=== PATIENT | male | born 1965 | race Caucasian/White ===

== ENCOUNTER 2018-04-12 16:54 | Observation (INO) | payer SELFPAY ==
--- NOTE | 2018-04-12 18:37 | EDPHYS ---
Physician Documentation [facility] Name: Ramu Bhat Age: 52 yrs Sex: Male : 1965 Arrival Date: 04/12/2018 Time: 16:56 Bed 24 Private MD: None, None ED Physician Cipriano Pena HPI: 04/12 18:29 This 52 yrs old Male presents to ER via Ambulatory with complaints of Chest jose daniel Tightness, Dizziness, Blurred Vision, Shortness Of Breath. 18:29 The patient or guardian reports chest pain that is located primarily in the substernal jose daniel area, anterior chest wall, bilaterally. Onset: just prior to arrival, today. The pain does not radiate. Associated signs and symptoms: Pertinent positives: nausea, shortness of breath. The chest pain is described as a heaviness, a pressure. Modifying factors: The symptoms are alleviated by nothing. the symptoms are aggravated by nothing. Severity of pain: At its worst the pain was mild moderate in the emergency department the pain is unchanged. The patient has experienced similar episodes in the past, several times. Historical: - Allergies: 17:18 No Known Allergies; aa5 - PMHx: 17:18 Hypertension; Kidney stones; STEMI; aa5 - PSHx: 17:18 Heart stents; aa5 - Immunization history:: Adult Immunizations unknown. - Social history:: Smoking status: Patient/guardian denies using tobacco. - Ebola Screening: : No symptoms or risks identified at this time. - Family history:: not pertinent. ROS: 18:29 Constitutional: Negative for fever, chills, and weight loss, Eyes: Negative for injury, jose daniel pain, redness, and discharge, ENT: Negative for injury, pain, and discharge, Neck: Negative for injury, pain, and swelling, Respiratory: Negative for shortness of breath, cough, wheezing, and pleuritic chest pain, Abdomen/GI: Negative for abdominal pain, nausea, vomiting, diarrhea, and constipation, Back: Negative for injury and pain, : Negative for injury, bleeding, discharge, and swelling, MS/Extremity: Negative for injury and deformity, Skin: Negative for injury, rash, and discoloration, Neuro: Negative for headache, weakness, numbness, tingling, and seizure. 18:29 Cardiovascular: Positive for chest pain. Exam: 18:29 Constitutional: This is a well developed, well nourished patient who is awake, alert, jose daniel and in no acute distress. Head/Face: Normocephalic, atraumatic. Eyes: Pupils equal round and reactive to light, extra-ocular motions intact. Lids and lashes normal. Conjunctiva and sclera are non-icteric and not injected. Cornea within normal limits. Periorbital areas with no swelling, redness, or edema. ENT: Nares patent. No nasal discharge, no septal abnormalities noted. Tympanic membranes are normal and external auditory canals are clear. Oropharynx with no redness, swelling, or masses, exudates, or evidence of obstruction, uvula midline. Mucous membranes moist. Neck: Trachea midline, no thyromegaly or masses palpated, and no cervical lymphadenopathy. Supple, full range of motion without nuchal rigidity, or vertebral point tenderness. No Meningismus. Chest/axilla: Normal chest wall appearance and motion. Nontender with no deformity. No lesions are appreciated. Cardiovascular: Regular rate and rhythm with a normal S1 and S2. No gallops, murmurs, or rubs. Normal PMI, no JVD. No pulse deficits. Respiratory: Lungs have equal breath sounds bilaterally, clear to auscultation and percussion. No rales, rhonchi or wheezes noted. No increased work of breathing, no retractions or nasal flaring. Abdomen/GI: Soft, non-tender, with normal bowel sounds. No distension or tympany. No guarding or rebound. No evidence of tenderness throughout. Back: No spinal tenderness. No costovertebral tenderness. Full range of motion. Male : Normal genitalia with no discharge or lesions. Skin: Warm, dry with normal turgor. Normal color with no rashes, no lesions, and no evidence of cellulitis. MS/ Extremity: Pulses equal, no cyanosis. Neurovascular intact. Full, normal range of motion. Neuro: Awake and alert, GCS 15, oriented to person, place, time, and situation. Cranial nerves II-XII grossly intact. Motor strength 5/5 in all extremities. Sensory grossly intact. Cerebellar exam normal. Normal gait. Psych: Awake, alert, with orientation to person, place and time. Behavior, mood, and affect are within normal limits. Vital Signs: 17:18 BP 150 / 79; Pulse 78; Resp 18 S; Temp 98.7(TE); Pulse Ox 96% on R/A; Weight 110.68 kg aa5 (R); Height 5 ft. 10 in. (177.80 cm) (R); Pain 6/10; 20:00 BP 162 / 91; Pulse 64; Resp 17; Pulse Ox 100% on R/A; rk2 20:30 BP 153 / 80; Pulse 61; Resp 17; Pulse Ox 100% on R/A; rk2 21:30 BP 136 / 76; Pulse 67; Resp 18; Pulse Ox 100% on R/A; rk2 17:18 Body Mass Index 35.01 (110.68 kg, 177.80 cm) aa5 MDM: 18:15 Patient medically screened. [facility] 18:32 Data reviewed: vital signs, nurses notes, lab test result(s), EKG, radiologic studies, jose daniel plain films. 04/12 18:25 Order name: Basic Metabolic Panel; Complete Time: 19:31 [facility] 04/12 18:25 Order name: BNP; Complete Time: 19:31 [facility] 04/12 18:25 Order name: CBC with Diff; Complete Time: 19:31 [facility] 04/12 18:25 Order name: Ckmb; Complete Time: 19:31 [facility] 04/12 18:25 Order name: CPK; Complete Time: 19:31 [facility] 04/12 18:25 Order name: LFT's; Complete Time: 19:31 [facility] 04/12 18:25 Order name: Magnesium; Complete Time: 19:31 [facility] 04/12 18:25 Order name: PT-INR [facility] 04/12 18:25 Order name: Ptt, Activated [facility] 04/12 18:25 Order name: Troponin (emerg Dept Use Only); Complete Time: 19:31 [facility] 04/12 18:25 Order name: XRAY Chest (1 view) [facility] 04/12 18:29 Order name: Lipase [facility] 04/12 19:22 Order name: RAD; Complete Time: 19:31 [facility] 04/12 20:21 Order name: Urine Dipstick--Ancillary (enter results) [facility] 04/12 18:25 Order name: EKG; Complete Time: 18:26 [facility] 04/12 18:25 Order name: Cardiac monitoring; Complete Time: 18:25 [facility] 04/12 18:25 Order name: EKG - Nurse/Tech; Complete Time: 18:25 2 04/12 18:25 Order name: IV Saline Lock; Complete Time: 18:25 2 04/12 18:25 Order name: Labs collected and sent; Complete Time: 19:17 04/12 18:25 Order name: O2 Per Protocol; Complete Time: 18:25 2 04/12 18:25 Order name: O2 Sat Monitoring; Complete Time: 18:26 04/12 18:25 Order name: Urine Dipstick-Ancillary (obtain specimen); Complete Time: 20:11 2 04/12 18:43 Order name: CONS Physician Consult EDMS Administered Medications: 18:33 Not Given (Pt. has taken multiple baby asa today): Aspirin 162 mg PO once rk2 18:45 Drug: Pepcid 20 mg Route: IVP; Site: right antecubital; rk2 20:44 Follow up: Response: No adverse reaction rk2 18:46 Drug: PlaVIX 75 mg Route: PO; rk2 20:45 Follow up: Response: No adverse reaction rk2 18:46 Drug: Lovenox 100 mg Route: Sub-Q; Site: right lower abdomen; rk2 20:44 Follow up: Response: No adverse reaction rk2 18:46 Drug: NS 0.9% 1000 ml Route: IV; Rate: 125 ml/hr; Site: right antecubital; rk2 21:57 Follow up: Response: No adverse reaction; IV Status: Completed infusion; Infusion rk2 continued 18:59 CANCELLED (cancelled by Dr. Pena... not is stock): Zocor 40 mg PO once rk2 Disposition: 04/12/18 18:36 Hospitalization ordered by Keshav Roche for Observation. Preliminary diagnosis are Chest pain, unspecified, Essential (primary) hypertension, Dyspnea. - Bed requested for Telemetry/MedSurg (observation). - Status is Observation. rk2 - Condition is Fair. - Problem is new. - Symptoms have improved. UTI on Admission? No Signatures: Dispatcher [employer] EDMS Cipriano Pena MD MD cha Ballard, Brenda, RN RN bb Evelyne Schwartz RN RN aa5 Quyen Elmore RN RN rk2 Corrections: (The following items were deleted from the chart) 18:59 18:36 Zocor 40 mg PO once ordered. jose daniel rk2 20:30 18:36 Hospitalization Ordered by Keshav Roche MD for Observation. Preliminary bb diagnosis is Chest pain, unspecified; Essential (primary) hypertension; Dyspnea. Bed requested for Telemetry/MedSurg (observation). Status is Observation. Condition is Fair. Problem is new. Symptoms have improved. UTI on Admission? No. jose daniel 22:29 20:30 04/12/2018 18:36 Hospitalization Ordered by Keshav Roche MD for Observation. rk2 Preliminary diagnosis is Chest pain, unspecified; Essential (primary) hypertension; Dyspnea. Bed requested for Telemetry/MedSurg (observation). Status is Observation. Condition is Fair. Problem is new. Symptoms have improved. UTI on Admission? No. bb
--- NOTE | 2018-04-12 18:37 | ER ---
Nurse's Notes [facility] Name: Ramu Bhat Age: 52 yrs Sex: Male : 1965 Arrival Date: 04/12/2018 Time: 16:56 Bed 24 Private MD: None, None Diagnosis: Chest pain, unspecified;Essential (primary) hypertension;Dyspnea Presentation: 04/12 17:16 Presenting complaint: Patient states: mid-sternal chest pressure, SOB, dizziness, and aa5 blurry vision that began Thursday. Transition of care: patient was not received from another setting of care. Onset of symptoms was April 09, 2018. Risk Assessment: Do you want to hurt yourself or someone else? Patient reports no desire to harm self or others. Initial Sepsis Screen: Does the patient meet any 2 criteria? No. Patient's initial sepsis screen is negative. Does the patient have a suspected source of infection? No. Patient's initial sepsis screen is negative. Care prior to arrival: None. 17:16 Method Of Arrival: Ambulatory aa5 17:16 Acuity: WILLIAM 3 aa5 Triage Assessment: 18:20 General: Appears in no apparent distress. obese, well developed, well nourished, rk2 Behavior is calm, cooperative. Pain: Complains of pain in chest. Neuro: Level of Consciousness is alert, obeys commands, Oriented to person, place, time, situation. Cardiovascular: Rhythm is sinus rhythm. Respiratory: Airway is patent Respiratory effort is even, unlabored, Respiratory pattern is regular, symmetrical. Derm: Skin is. Historical: - Allergies: 17:18 No Known Allergies; aa5 - PMHx: 17:18 Hypertension; Kidney stones; STEMI; aa5 - PSHx: 17:18 Heart stents; aa5 - Immunization history:: Adult Immunizations unknown. - Social history:: Smoking status: Patient/guardian denies using tobacco. - Ebola Screening: : No symptoms or risks identified at this time. - Family history:: not pertinent. Screenin:20 Abuse screen: Denies threats or abuse. rk2 18:20 Nutritional screening: No deficits noted. Tuberculosis screening: No symptoms or risk rk2 factors identified. Fall Risk None identified. Assessment: 20:00 Pain: Pain does not radiate. Pain began 2-3 days ago. rk2 Vital Signs: 17:18 BP 150 / 79; Pulse 78; Resp 18 S; Temp 98.7(TE); Pulse Ox 96% on R/A; Weight 110.68 kg aa5 (R); Height 5 ft. 10 in. (177.80 cm) (R); Pain 6/10; 20:00 BP 162 / 91; Pulse 64; Resp 17; Pulse Ox 100% on R/A; rk2 20:30 BP 153 / 80; Pulse 61; Resp 17; Pulse Ox 100% on R/A; rk2 21:30 BP 136 / 76; Pulse 67; Resp 18; Pulse Ox 100% on R/A; rk2 17:18 Body Mass Index 35.01 (110.68 kg, 177.80 cm) aa5 ED Course: 16:56 Patient arrived in ED. mr 16:56 None, None is Private Physician. mr 17:17 Triage completed. aa5 17:17 Arm band placed on. aa5 17:20 EKG completed in triage. Results shown to MD. [facility] 18:15 Cipriano Pena MD is Attending Physician. [facility] 18:16 Quyen Elmore RN is Primary Nurse. rk2 18:20 Patient has correct armband on for positive identification. Fall risk band placed. Bed rk2 in low position. Call light in reach. Side rails up X2. architectural examiner on. Pulse ox on. 18:34 Keshav Roche MD is Hospitalizing Provider. [facility] 19:01 X-ray completed. Portable x-ray completed in exam room. Patient tolerated procedure bb2 well. 19:18 XRAY Chest (1 view) Sent. rk2 21:55 No provider procedures requiring assistance completed. Patient admitted, IV remains in rk2 place. Patient maintains SpO2 saturation greater than 95% on room air. Administered Medications: 18:33 Not Given (Pt. has taken multiple baby asa today): Aspirin 162 mg PO once rk2 18:45 Drug: Pepcid 20 mg Route: IVP; Site: right antecubital; rk2 20:44 Follow up: Response: No adverse reaction rk2 18:46 Drug: PlaVIX 75 mg Route: PO; rk2 20:45 Follow up: Response: No adverse reaction rk2 18:46 Drug: Lovenox 100 mg Route: Sub-Q; Site: right lower abdomen; rk2 20:44 Follow up: Response: No adverse reaction rk2 18:46 Drug: NS 0.9% 1000 ml Route: IV; Rate: 125 ml/hr; Site: right antecubital; rk2 21:57 Follow up: Response: No adverse reaction; IV Status: Completed infusion; Infusion rk2 continued 18:59 CANCELLED (cancelled by Dr. Pena... not is stock): Zocor 40 mg PO once rk2 Outcome: 18:36 Decision to Hospitalize by Provider. jose daniel 21:55 Admitted to Tele rk2 21:55 Condition: improved 21:55 Instructed on the need for admit. 22:29 Patient left the ED. rk2 Signatures: Cipriano Pena MD MD cha Rivera, Maria mr Calderon, Audri, RN RN aa5 Ashia Long Quyen Andrade RN RN rk2
[2018-04-12] MEDS ORDERED: ENOXAPARIN 100 MG/ML SYR SQ ONE (18:39)
[2018-04-12] MEDS ORDERED: FAMOTIDINE 20 MG/2 ML VIAL IV ONE (18:39)
[2018-04-12] MEDS ORDERED: CLOPIDOGREL 75 MG TABLET ONE (18:39)
[2018-04-12] MEDS ORDERED: NA CHLORIDE 0.9% 1,000 ML ONE (18:40)
[2018-04-12 18:51] LABS: Absolute Lymphocytes (CBC) 2.4 K/uL (0.7-4.9); Absolute Monocytes 0.3 K/uL (0.1-1.3); Absolute Neutrophil 3.9 K/uL (1.8-8.0); Basophils % 0.8 % (0-1.3); Eosinophils % 4.8 % (0-4.4); Hematocrit 40.2 % (39.6-49.0); Lymphocytes % 34.4 % (15.3-44.8); MCH 32.9 pg (27.0-35.0); MPV 9.2 fL (7.6-11.3); Monocytes % 4.4 % (3.3-12.3); RBC Red Blood Cell Count 4.38 M/uL (4.33-5.43)
[2018-04-12 19:04] LABS: Potassium 3.6 mEq/L (3.6-5.0)
[2018-04-12 19:11] LABS: Albumin 4.1 g/dL (3.2-5.5); Bilirubin Direct 0.1 mg/dL (0-0.2); Bilirubin Total 0.7 mg/dL (0.3-1.2)
[2018-04-12 19:13] LABS: CKMB Creatine Kinase MB 1.4 ng/ml (0.3-4.0)
[2018-04-12] MEDS ORDERED: ACETAMINOPHEN 500 MG TAB PO PRN (19:20)
--- NOTE | 2018-04-12 19:22 | RAD REPORT ---
EXAM DESCRIPTION: RAD - Chest Single View - 04/12/2018 7:04 pm CLINICAL HISTORY: Chest pain. COMPARISON: 07/26/2017 FINDINGS: Portable technique limits examination quality. The lungs are grossly clear. The heart is normal in size. No displaced fractures. IMPRESSION: No acute intrathoracic process suspected.
[2018-04-12 19:26] LABS: Protime INR 1.03
[2018-04-12] MEDS ORDERED: ATORVASTATIN 40 MG TAB PO SCH (21:00)
[2018-04-12] MEDS: METOPROLOL TAR 50 MG TAB PO SCH (22:51)
[2018-04-12 22:58] LABS: Urine Blood NEGATIVE (NEG); Urine Glucose NEGATIVE (NEG); Urine Protein NEGATIVE (NEG); Urine Specific Gravity >1.030 (1.005-1.030); Urine pH 5.5 (5.0-7.0)
[2018-04-12] MEDS: MORPHINE 4 MG/ML SYR IV PRN (23:25)
[2018-04-12 23:39] LABS: CKMB Creatine Kinase MB 1.2 ng/ml (0.3-4.0)
[2018-04-12] MEDS: ALPRAZOLAM 0.25 MG TABLET PO PRN (23:55)
[2018-04-13] MEDS: MORPHINE 4 MG/ML SYR IV PRN (03:26)
[2018-04-13] MEDS ORDERED: NA CHLORIDE 0.9% 250 ML ONE (05:31)
[2018-04-13] MEDS ORDERED: PANTOPRAZOLE 40 MG INJ ONE (05:31)
[2018-04-13] MEDS ORDERED: Morphine 2 MG/2 ML SYR IV PRN (07:34)
--- NOTE | 2018-04-13 07:48 | P.HP ---
Certification for Inpatient Patient admitted to: Observation With expected LOS: <2 Midnights Patient will require the following post-hospital care: None Practitioner: I am a practitioner with admitting privileges, knowledge of patient current condition, hospital course, and medical plan of care. Services: Services provided to patient in accordance with Admission requirements found in Title 42 Section 412.3 of the Code of Federal Regulations Patient History Date of Service: 04/12/18 Reason for admission: Chest pain rule out acute coronary syndrome History of Present Illness: Patient is a 52-year-old gentleman who came into the hospital with chest discomfort. Pain was mainly in the sternal region and radiated to his left arm. Patient states that he is trying the take better care of himself by eating healthier and exercising more regularly. When he 1st started exercising he started getting pain to his left arm. He has not been taking his heart medications as prescribed because he did not have health insurance. Patient has not been on medication for quite awhile. He is also exposed to secondhand smoke as his significant other smokes regularly around him. At this time, he will be admitted to the hospital. We will rule him out for acute coronary syndrome, and we will schedule him for cardiac stress testing. Allergies No Known Drug Allergies Allergy (Verified 04/12/18 22:58) Unknown No Known Allergies Allergy (Uncoded 01/25/17 22:05) Unknown Home Medications: Aspirin 4 tab PO DAILY 04/12/18 - Past Medical/Surgical History Has patient received pneumonia vaccine in the past: No Diabetic: No -: Hypertension -: STEMI -: Kidney stones -: Cardiac Stents - December 21 2016 - Family History Mother Medical History: Diabetes, Cancer Notes: bone marrow cancer Father Medical History: Heart disease, Hypertension Notes: [place] - Social History Smoking Status: Never smoker Alcohol use: No CD- Drugs: No Caffeine use: Yes Place of Residence: Home Review of Systems 10-point ROS is otherwise unremarkable Physical Examination - Vital Signs Temperature: 97.2 F Blood Pressure: 130/59 Pulse: 59 Respirations: 16 Pulse Ox (%): 100 - Physical Exam General: Alert, In no apparent distress, Oriented x3 HEENT: Atraumatic, PERRLA, Mucous membr. moist/pink, EOMI, Sclerae nonicteric Neck: Supple, 2+ carotid pulse no bruit, No LAD, Without JVD or thyroid abnormality Respiratory: Clear to auscultation bilaterally, Normal air movement Cardiovascular: Regular rate/rhythm, Normal S1 S2, No murmurs Gastrointestinal: Normal bowel sounds, Soft and benign, Non-distended, No tenderness Musculoskeletal: No clubbing, No swelling, No tenderness Integumentary: No rashes Neurological: Normal gait, Normal speech, Normal strength at 5/5 x4 extr, Normal tone, Sensation intact, Cranial nerves 3-12 intact, Normal affect Lymphatics: No axilla or inguinal lymphadenopathy - Studies Laboratory Data (last 24 hrs) 04/12/18 18:28: Lipase 36 04/12/18 18:28: PT 12.2, INR 1.03, APTT 37.6 H 04/12/18 18:28: WBC 7.0, Hgb 14.4, Hct 40.2, Plt Count 270 04/12/18 18:28: B-Natriuretic Peptide 44 04/12/18 18:28: Sodium 140, Potassium 3.6, BUN 16, Creatinine 1.08, Glucose 100 , Magnesium 2.0, Total Bilirubin 0.7, AST 30, ALT 53, Alkaline Phosphatase 79 Assessment & Plan - Problems (Diagnosis) (1) Chest pain, rule out acute myocardial infarction Current Visit: Yes Status: Acute (2) HTN (hypertension) Onset Date: 01/26/17 Current Visit: No Status: Acute Qualifiers: (3) CAD (coronary artery disease) Onset Date: 01/26/17 Current Visit: No Status: Chronic Qualifiers: - Plan 1. Serial troponins and EKG 2. Cardiology consultation 3. Echocardiogram and inpatient stress test(pending cardiology evaluation) 4. Anti-platelet therapy, anti coagulation, beta-raul, statin, and O2 as needed 5. IV morphine for pain 6. Nitro p.r.n. 7. Weatherization Specialist regarding refraining from family member smoking around him Discharge Plan: Home Plan to discharge in: 24 Hours - Advance Directives Does patient have a Living Will: No Does patient have a Durable POA for Healthcare: No Critical Care: No Time Spent Managing PTS Care (In Minutes): 45
[2018-04-13] MEDS ORDERED: REGADENOSON 0.4 MG/5 ML SYR IV ONE (07:49)
[2018-04-13] MEDS ORDERED: TRAMADOL HCL 50 MG TAB PO PRN (08:17)
[2018-04-13] MEDS ORDERED: HYDROCODONE/APAP 7.5/325 MG TAB PO PRN (08:18)
[2018-04-13] MEDS: ALPRAZOLAM 0.25 MG TABLET PO PRN (08:47)
[2018-04-13] MEDS ORDERED: CLOPIDOGREL 75 MG TABLET PO SCH (09:00)
[2018-04-13] MEDS ORDERED: ASPIRIN EC 81 MG TAB PO SCH (09:00)
[2018-04-13] MEDS: METOPROLOL TAR 50 MG TAB PO SCH (10:34)
--- NOTE | 2018-04-13 11:18 | P.PN ---
Subjective Date of Service: 04/13/18 Primary Care Provider: None Chief Complaint: Chest pain rule out acute coronary syndrome Subjective: Improving Physical Examination - Vital Signs Temperature: 97.0 F Blood Pressure: 130/59 Pulse: 59 Respirations: 17 Pulse Ox (%): 98 - Physical Exam General: Alert, In no apparent distress, Oriented x3, Cooperative HEENT: Atraumatic Neck: Supple Respiratory: Clear to auscultation bilaterally, Normal air movement Cardiovascular: Normal pulses, Regular rate/rhythm Gastrointestinal: Normal bowel sounds, Soft and benign, Non-distended, No tenderness, No masses, No rebound, No guarding Musculoskeletal: No erythema, No tenderness, No warmth Integumentary: No tenderness/swelling, No erythema, No warmth, No cyanosis Neurological: Normal speech, Normal strength at 5/5 x4 extr, Normal tone, Normal affect Lymphatics: No axilla or inguinal lymphadenopathy - Studies Laboratory Data (last 24 hrs) 04/12/18 18:28: Lipase 36 04/12/18 18:28: PT 12.2, INR 1.03, APTT 37.6 H 04/12/18 18:28: WBC 7.0, Hgb 14.4, Hct 40.2, Plt Count 270 04/12/18 18:28: B-Natriuretic Peptide 44 04/12/18 18:28: Sodium 140, Potassium 3.6, BUN 16, Creatinine 1.08, Glucose 100 , Magnesium 2.0, Total Bilirubin 0.7, AST 30, ALT 53, Alkaline Phosphatase 79 Medications List Reviewed: Yes Assessment & Plan - Problems (Diagnosis) (1) Obesity Current Visit: Yes Status: Chronic Plan: Lifestyle modification education will be provided. Qualifiers: Obesity type: due to excess calories Obesity classification: adult class 2 (BMI 35 - 39.9) Serious obesity comorbidity presence: with serious comorbidity Body mass index: BMI 36.0-36.9 Qualified Code(s): E66.01 - Morbid (severe) obesity due to excess calories; Z68.36 - Body mass index (BMI) 36.0-36.9, adult (2) Chest pain Onset Date: 04/13/18 Current Visit: Yes Status: Acute Plan: So far cardiac enzymes unremarkable. Patient evaluated by Cardiology. Cardiology recommends stress test. Await results. If negative patient can be discharged home. Compliance with medication addressed in detail. Patient is non compliant with medication. Qualifiers: Ischemic chest pain type: stable angina pectoris (3) HTN (hypertension) Onset Date: 01/26/17 Current Visit: No Status: Chronic Plan: Continue with blood pressure medication. Qualifiers: Hypertension type: essential hypertension (4) CAD (coronary artery disease) Onset Date: 01/26/17 Current Visit: No Status: Chronic Plan: Continue with medication. Will monitor closely. Stress test ordered. Qualifiers: Coronary Disease-Associated Artery/Lesion type: unspecified vessel or lesion type [place] vs. transplanted heart: unspecified whether [place] or transplanted heart Associated angina: angina presence unspecified Qualified Code(s): I25.10 - Atherosclerotic heart disease of [place] coronary artery without angina pectoris (5) Noncompliance Current Visit: Yes Status: Chronic Plan: Patient with noncompliance with medication. Education on compliance with medication addressed in detail. Will have director of social services help in this process. Discharge Plan: Home Plan to discharge in: 24 Hours Time Spent Managing Pts Care (In Minutes): 55
--- NOTE | 2018-04-13 12:58 | RAD REPORT ---
EXAM DESCRIPTION: NM - Rest Stress Cardiac Imaging - 04/13/2018 12:51 pm CLINICAL HISTORY: Chest pain. COMPARISON: None. TECHNIQUE: The patient was administered approximately 10mCi of Tc 99m Sestamibi prior to resting SPE CT imaging of the heart. The patient was then administered approximately 30 mCi of Tc 99m Sestamibi f ollowing exercise or pharmacologic stress. Multiplanar SPECT images were reviewed. FINDINGS: No stress induced ischemic defect is seen to suggest stress induced ischemia. No fixed def ect is seen to suggest hibernating myocardium or scarred myocardium. The end diastolic volume is 107 ml, the end systolic volume is 56 ml, and the ejection fraction is 48 %. IMPRESSION: No stress induced ischemia.
--- NOTE | 2018-04-13 13:30 | P.DS ---
Admission Date: 04/12/18 Discharge Date: 04/13/18 Primary Care Provider: None Disposition: ROUTINE DISCHARGE Discharge Condition: GOOD Reason for Admission: Chest pain rule out acute coronary syndrome Consultations: Cardiology-Dr. Naik Procedures: Cardiac stress test: No stress-induced ischemia. Ejection fraction 48%. - Problems (1) Obesity Current Visit: Yes Status: Chronic Qualifiers: Obesity type: due to excess calories Obesity classification: adult class 2 (BMI 35 - 39.9) Serious obesity comorbidity presence: with serious comorbidity Body mass index: BMI 36.0-36.9 Qualified Code(s): E66.01 - Morbid (severe) obesity due to excess calories; Z68.36 - Body mass index (BMI) 36.0-36.9, adult (2) Chest pain Onset Date: 04/13/18 Current Visit: Yes Status: Acute Qualifiers: Ischemic chest pain type: stable angina pectoris (3) HTN (hypertension) Onset Date: 01/26/17 Current Visit: No Status: Chronic Qualifiers: Hypertension type: essential hypertension (4) CAD (coronary artery disease) Onset Date: 01/26/17 Current Visit: No Status: Chronic Qualifiers: Coronary Disease-Associated Artery/Lesion type: unspecified vessel or lesion type [place] vs. transplanted heart: unspecified whether [place] or transplanted heart Associated angina: angina presence unspecified Qualified Code(s): I25.10 - Atherosclerotic heart disease of [place] coronary artery without angina pectoris (5) Noncompliance Current Visit: Yes Status: Chronic (6) Hyperlipidemia Current Visit: Yes Status: Chronic Qualifiers: Hyperlipidemia type: unspecified Qualified Code(s): E78.5 - Hyperlipidemia , unspecified Brief History of Present Illness: 52-year-old male presented to ER with chest pain. Patient has history of CAD, hypertension and hyperlipidemia. Patient has been non compliant with his medication. Patient was admitted for further evaluation. Hospital Course: During his stay chest pain resolved. Patient was evaluated by cardiology. Cardiac stress test was done to further assess. Cardiac stress test showed no stress-induced ischemia. Ejection fraction 48%. At discharge with aspirin 81 mg daily and Plavix 75 mg daily. Recommendation is for the patient to follow up with cardiology as an outpatient to further monitor. Compliance with medication will be important. Patient will be given nitroglycerin 0.4 mg to be use as needed for chest pain. Patient has hypertension. At discharge patient will continue with metoprolol 50 mg 1 pill twice daily. Recommendation is to maintain blood pressures less 150/80. Further adjustment can be done by his PCP. Patient has hyperlipidemia. This is well controlled. Patient will continue with Lipitor 40 mg daily. Compliance with medication and follow up is recommended. Vital Signs/Physical Exam: Temp Pulse Resp BP Pulse Ox 97.0 F 59 17 130/59 L 98 04/13/18 11:17 04/13/18 11:17 04/13/18 11:17 04/13/18 11:17 04/13/18 11:17 General: Alert, In no apparent distress, Oriented x3, Cooperative HEENT: Atraumatic Neck: Supple Respiratory: Clear to auscultation bilaterally, Normal air movement Cardiovascular: Normal pulses, Regular rate/rhythm Gastrointestinal: Normal bowel sounds, Soft and benign, Non-distended, No tenderness, No masses, No rebound, No guarding Musculoskeletal: No erythema, No tenderness, No warmth Integumentary: No tenderness/swelling, No erythema, No warmth, No cyanosis Neurological: Normal speech, Normal strength at 5/5 x4 extr, Normal tone, Normal affect Lymphatics: No axilla or inguinal lymphadenopathy Laboratory Data at Discharge: WBC 7.0 K/uL (4.3-10.9) 04/12/18 18:28 Hgb 14.4 g/dL (13.6-17.9) 04/12/18 18:28 Hct 40.2 % (39.6-49.0) 04/12/18 18:28 Plt Count 270 K/uL (152-406) 04/12/18 18:28 PT 12.2 SECONDS (9.5-12.5) 04/12/18 18:28 INR 1.03 04/12/18 18:28 APTT 37.6 SECONDS (24.3-36.9) H 04/12/18 18:28 Sodium 140 mEq/L (135-145) 04/12/18 18:28 Potassium 3.6 mEq/L (3.6-5.0) 04/12/18 18:28 BUN 16 mg/dL (6-20) 04/12/18 18:28 Creatinine 1.08 mg/dL (0.61-1.24) 04/12/18 18:28 Glucose 100 mg/dL (65-120) 04/12/18 18:28 Magnesium 2.0 mg/dL (1.8-2.5) 04/12/18 18:28 Total Bilirubin 0.7 mg/dL (0.3-1.2) 04/12/18 18:28 AST 30 IU/L (10-42) 04/12/18 18:28 ALT 53 IU/L (10-60) 04/12/18 18:28 Alkaline Phosphatase 79 IU/L (42-121) 04/12/18 18:28 Troponin I < 0.03 ng/mL (<0.03) 04/13/18 04:47 B-Natriuretic Peptide 44 pg/ml (<=100) 04/12/18 18:28 Triglycerides 114 mg/dL (35-160) 04/13/18 04:47 Cholesterol 105 mg/dL (<200) 04/13/18 04:47 HDL Cholesterol 35 mg/dL (27-67) 04/13/18 04:47 Cholesterol/HDL Ratio 3.00 04/13/18 04:47 Lipase 36 U/L (22-51) 04/12/18 18:28 Home Medications: Aspirin [Aspirin EC 81 MG] 81 mg PO DAILY #90 tablet. 04/13/18 Atorvastatin Calcium [Lipitor] 40 mg PO BEDTIME #30 tab 04/13/18 Clopidogrel Bisulfate [Plavix*] 75 mg PO DAILY #30 tablet 04/13/18 Metoprolol Tartrate [Lopressor*] 50 mg PO BID #60 tab 04/13/18 New Medications: Aspirin [Aspirin EC 81 MG] 81 mg PO DAILY #90 tablet. Atorvastatin Calcium [Lipitor] 40 mg PO BEDTIME #30 tab Clopidogrel Bisulfate [Plavix*] 75 mg PO DAILY #30 tablet Metoprolol Tartrate [Lopressor*] 50 mg PO BID #60 tab Patient Discharge Instructions: 1. Patient will need to establish care with a PCP to follow up this hospitalization. 2. Patient presented with chest pain. Patient evaluated by Cardiology. Cardiac stress test showed no stress-induced ischemia. Ejection fraction 40%. At discharge patient will continue with aspirin 81 mg daily and Plavix 75 mg daily. Recommendation is for the patient follow up with cardiology in 2-4 weeks to monitor his progress. Nitroglycerin will be provided to be use as needed for chest pain. Compliance with medication encouraged. 3. Patient has HTN. At discharge he will continue with metoprolol 50 mg one pill twice daily. Recommendation is to maintain BP less than 150/80. Further adjustment can be done by his PCP. 4. Patient has Hyperlipidemia. It is controlled. He will need to continue with Lipitor 40 mg daily. 5. Compliance with medication is encouraged. Diet: AHA Activity: Ad salma Time spent managing pt's care (in minutes): 55
--- NOTE | 2018-04-13 13:45 | EKG ---
Test Date: 2018-04-12 Test Time: 17:23:15 [employer] Feeder: JANINE MEASUREMENT RESULTS: Intervals: Rate: 67 NC: 132 QRSD: 80 QT: 384 QTc: 405 [place]: P: 45 NC: 132 QRS: 20 T: 10 INTERPRETIVE STATEMENTS: Normal sinus rhythm Inferior infarct, age undetermined Abnormal ECG Compared to ECG 07/26/2017 22:46:42 Myocardial infarct finding now present Electronically Signed On 04-13-18 13:41:57 CDT by Son Naik
--- NOTE | 2018-04-13 14:32 | TREADPHA ---
DX: CHEST PAIN/ CORNARY ARTERY DISEASE Date of Study: 04/13/2018 Ht: 5 10 Wt: 257 lb 1.6 oz Consulting Physician: ESTIVEN MEDICATIONS: TYLENOL, XANAX, ASPIRIN, LIPITOR, PLAVIX, LOPRESSOR HISTORY: 52 YEAR OLD MALE HERE FOR CHEST PAIN AND CORNARY ARTERY DISEASE. HISTORY OF HYPERTENSION, STEMI AND KIDNEY STONES. PHYSICIAL EXAMINATION: RESTING B.P.: 126/83 RESTING H.R.: 56 RESTING EKG: SINUS BRADYCARDIA PROTOCOL: EXERCISE TIME: 3:30 B.P. AT PEAK STRESS: 133/86 IMPRESSION: LEXISCAN STRESS TEST PERFORMED. CARDIOLITE INJECTED PER PROTOCOL. RARE PREMATURE VENTRICULAR COMPLEXES NOTED DURING AND POST STRESS TEST. DENIES ANY CHEST PAIN. SEE NUCLEAR MEDICINE REPORT.
--- NOTE | 2018-04-13 14:37 | ECHO ---
HEIGHT: 5 ft 10 in WEIGHT: 257 lb 1.6 oz DATE OF STUDY: 04/13/[address]: 2-DIMENSIONAL: YES M.MODE: YES DOPPLER: YES COLOR FLOW: YES TDS: NO PORTABLE: NO DEFINITY: NO BUBBLE STUDY: NO DIAGNOSIS: CHEST PAIN CARDIAC HISTORY: CATHERIZATION: NO SURGERY: NO PROSTHETIC VALVE: NO PACEMAKER: NO MEASUREMENTS (cm) DIASTOLIC (NORMALS) SYSTOLIC (NORMALS) IVSd 0.9 (0.6-1.2) LA Diam 3.9 (1.9-4.0) LVEF 66% LVIDd 4.6 (3.5-5.7) LVIDs 2.9 (2.0-3.5) %FS 36% LVPWd 1.1 (0.6-1.2) Ao Diam 3.0 (2.0-3.7) 2 DIMENSIONAL ASSESSMENT: RIGHT ATRIUM: NORMAL LEFT ATRIUM: NORMAL RIGHT VENTRICLE: NORMAL LEFT VENTRICLE: NORMAL TRICUSPID VALVE: NORMAL MITRAL VALVE: NORMAL PULMONIC VALVE: NORMAL AORTIC VALVE: NORMAL PERICARDIAL EFFUSION: NONE AORTIC ROOT: NORMAL LEFT VENTRICULAR WALL MOTION: NORMAL. DOPPLER/COLOR FLOW: MILD TRICUSPID REGURGITATION. COMMENTS: MILD TRICUSPID REGURGITATION. NORMAL LEFT VENTRICULAR SIZE AND FUNCTION. NO WALL MOTION ABNORMALITIES. TECHNOLOGIST: VIRY FOSTER
--- NOTE | 2018-04-13 23:13 | CON ---
Date of Consultation: 04/13/2018 The patient was admitted to Dr. Roche on 04/12/2018. I saw the patient on 04/13/2018. Reason For Consultation: Chest pain. History Of Present Illness: Mr. Bhat is a 52-year-old male. He is very well known to me from prev ious office visits and admissions. He has had a stent many years ago and is completely not compliant . He quits taking all his medication. He is supposed to be taking aspirin, Plavix, Lipitor, as well as Toprol and Xanax at home, but he does not take any of his medications. He fails to follow up, fa ils to take his medication, and became noncompliant. He had a recent admission to the hospital in last year for similar episodes. I did not feel like he needed to have any workup at that point. H e was supposed to be seen as an outpatient and never did. He came in with atypical sharp shooting ch est pain, dizziness, shortness of breath, back pain, weakness, depression, anxiety issue, normal EKG, normal chest x-ray, and normal laboratory evaluation. Past Medical History: As stated above. Allergies: NONE. Review of Systems: Positive for some fever, chills, and diarrhea. Social History: Positive for tobacco and alcohol use. Physical Examination: Vital Signs: Stable, afebrile. HEENT: Negative. Neck: Supple. There is no bruit. Chest: Clear. Cardiac: Revealed a regular rate without any murmurs, gallops, or rubs. Abdomen: Benign. Extremities: Revealed no clubbing, cyanosis, or edema. Diagnostic Data: Normal. Impression And Plan: 1.Chest pain. 2.History of coronary artery disease, status post stent, previous negative workup after that and non compliance, no followups, did not take his medicine. 3.Hypertension. 4.Dyslipidemia. 5.Anxiety. An echocardiogram and Lexiscan are pending. We will see what those show prior to making a final decision. I doubt we are dealing with any coronary artery disease issue. I think this is m ore musculoskeletal and anxiety related. ZAHEER/JOHNNIE Voice ID: [id number] Report ID: [id number]
== END 2018-04-13 16:33 | disposition home or self-care (01) ==
LOC: ER 16:54 → ERHOLD 18:38 → 2ND 21:01
PROVIDERS: ADMIT Hospitalist; ATTEND Hospitalist
DX: I25.118 Atherosclerotic heart disease of native coronary artery with other forms of angina pectoris (principal); I10 Essential (primary) hypertension; Z95.5 Presence of coronary angioplasty implant and graft; Z91.14 Patient's other noncompliance with medication regimen; F17.210 Nicotine dependence, cigarettes, uncomplicated; E78.5 Hyperlipidemia, unspecified; E66.01 Morbid (severe) obesity due to excess calories; Z68.36 Body mass index [BMI] 36.0-36.9, adult
CPT/HCPCS: 36415; 71045; 78452; 80048; 80061; 80076; 81003; 82550; 82553; 83690; 83735; 83880; 84484; 85025; 85610; 85730; 93005; 93017; 93306; 96361; 96372; 96374; 99285; A9500; C9113; G0378; J1650; J2785; J7030

== ENCOUNTER 2021-09-04 14:39 | Observation (INO) | payer OTHER, SELFPAY ==
[2021-09-04] MEDS ORDERED: ONDANSETRON 4 MG/2 ML VIAL ONE (15:32)
[2021-09-04] MEDS ORDERED: NA CHLORIDE 0.9% 1,000 ML ONE (15:32)
[2021-09-04] MEDS ORDERED: LIDOCAINE VISCOUS 2% SOLN 15 ML UDC ONE (15:32)
[2021-09-04] MEDS ORDERED: MAGNES/ALUMIN/SIMET 30ML UCUP ONE (15:35)
[2021-09-04 15:55] LABS: Absolute Lymphocytes (CBC) 1.6 K/uL (0.7-4.9); Basophils % 0.2 % (0-1.3); Hematocrit 44.2 % (39.6-49.0); Lymphocytes % 9.1 % (15.3-44.8); MPV 9.2 fL (7.6-11.3); RBC Red Blood Cell Count 4.74 M/uL (4.33-5.43)
[2021-09-04 15:57] LABS: Protime INR 1.09
[2021-09-04] MEDS ORDERED: HYDROMORPHONE HCL 1 MG/ML INJ ONE (16:11)
--- NOTE | 2021-09-04 16:25 | RAD REPORT ---
EXAM DESCRIPTION: RAD - Chest Single View - 09/04/2021 4:18 pm CLINICAL HISTORY: chest pain Chest pain. COMPARISON: Chest Single View dated 04/12/2018; Chest Single View dated 07/26/2017; Chest Single View d ated 07/24/2017; Chest Single View dated 01/26/2017 FINDINGS: Portable technique limits examination quality. Mild pulmonary edema is noted. The heart is moderately enlarged in size. No displaced fractures.Duran otomy wires. IMPRESSION: Mild CHF versus volume overload pattern.
[2021-09-04 16:28] LABS: Platelet Estimate ADEQ; White Blood Cell Scan OK (OK)
[2021-09-04 16:29] LABS: Blood Morphology Comment NOT SEEN (NOT SEEN)
[2021-09-04 16:44] LABS: ALT/SGPT 34 U/L (12-78); AST/SGOT 19 U/L (15-37); Albumin 4.2 g/dL (3.4-5.0); Alkaline Phosphatase 96 U/L (45-117); BUN Blood Urea Nitrogen 23 mg/dL (7-18); Bicarbonate 27 mmol/L (21-32); Bilirubin Direct 0.3 mg/dL (0-0.2); Bilirubin Total 1.2 mg/dL (0.2-1.0); Glucose Level 132 mg/dL (74-106); NT PRO-BNP 363 pg/mL (<125); Potassium 3.6 mmol/L (3.5-5.1); Protein, Total 8.2 g/dL (6.4-8.2); Sodium Level 140 mmol/L (136-145); Troponin I < 0.02 ng/mL (0.0-0.045)
--- NOTE | 2021-09-04 17:48 | RAD REPORT ---
EXAM DESCRIPTION: CT - Head Brain Wo Cont - 09/04/2021 5:40 pm CLINICAL HISTORY: HEADACHE Headache cough drowsiness COMPARISON: No comparisons TECHNIQUE: All CT scans are performed using dose optimization technique as appropriate and may inclu de automated exposure control or mA/KV adjustment according to patient size. FINDINGS: No intracranial hemorrhage, hydrocephalus or extra-axial fluid collection.No areas of brai n edema or evidence of midline shift. The paranasal sinuses and mastoids are clear. The calvarium is intact. IMPRESSION: No acute intracranial abnormality.
--- NOTE | 2021-09-04 17:55 | RAD REPORT ---
EXAM DESCRIPTION: CT - Angio Aorta For Dissection - 09/04/2021 5:41 pm CLINICAL HISTORY: Chest pain radiating to the back. abd pain, htn, chest pain COMPARISON: Angio Aorta For Dissection dated 01/25/2017 TECHNIQUE: CT angiography of the aorta was performed with MIPs. All CT scans are performed using dose optimization technique as appropriate and may include automated exposure control or mA/KV adjustment according to patient size. FINDINGS: A left aortic arch is present with bovine configuration pattern of the great vessels.No ac blaire aortic finding is seen such as aneurysm, penetrating ulcer or dissection. The celiac axis, SMA, ALISA and renal arteries are patent. No evidence of pulmonary embolism. Mild diffuse COPD is present. The liver demonstrates no focal mass or biliary dilatation.The spleen, pancreas, adrenal glands and k idneys are within normal limits for arterial phase imaging. No bowel obstruction, free fluid or abscess.Normal appendix.No pathologic enlarged lymphadenopathy id entified. No fracture or worrisome bone lesion seen. IMPRESSION: No acute aortic finding is demonstrated. Mild diffuse COPD.
--- NOTE | 2021-09-04 18:59 | EDPHYS ---
Physician Documentation [facility] Name: Ramu Bhat Age: 55 yrs Sex: Male : 1965 Arrival Date: 09/04/2021 Time: 14:42 Bed 14 Private MD: ED Physician Fritz Bang HPI: 09/04 17:32 This 55 yrs old Male presents to ER via Wheelchair with complaints of rn Abdominal pain, chest pain, headache, vomiting. 17:33 The patient presents with abdominal pain in the epigastric area, in the upper abdomen. rn Onset: The symptoms/episode began/occurred today. The symptoms radiate to chest. Associated signs and symptoms: Pertinent positives: nausea and vomiting, chest pain, fever, nausea, vomiting, Pertinent negatives: blood in stools, shortness of breath, testicular pain, vomiting blood. The symptoms are described as burning. Modifying factors: The symptoms are alleviated by nothing, the symptoms are aggravated by nothing. Severity of pain: At its worst the pain was moderate in the emergency department the pain is unchanged. The patient has not experienced similar symptoms in the past. The patient has not recently seen a physician. Patient reports began today with abdominal pain, headache, chest pain, feels like it is all connected and feels like a burning sensation. Reports subjective fever. Reports associated headache. Denies any trauma. Reports history of cardiac bypass but feels like this pain is radiated from the abdomen into the chest.. Historical: - Allergies: 14:45 No Known Drug Allergies; tw2 - Home Meds: 14:45 metoprolol succinate 25 mg Oral Tb24 1 tab once daily [Active]; atorvastatin 80 mg Oral tw2 tab 1 tab once daily [Active]; aspirin 81 mg oral tab [Active]; - PMHx: 14:45 Hypertension; Kidney stones; STEMI; tw2 - PSHx: 14:45 Cholecystectomy; triple bypass; tw2 - Immunization history:: Client reports receiving the 2nd dose of the Covid vaccine. - Social history:: Smoking status: Patient denies any tobacco usage or history of. - Family history:: not pertinent. - Hospitalizations: : No recent hospitalization is reported. ROS: 17:33 Constitutional: Positive for subjective fever Eyes: Negative for injury, pain, redness, rn and discharge, ENT: Negative for injury, pain, and discharge, Neck: Negative for injury, pain, and swelling, Cardiovascular: Positive for chest pain Respiratory: Negative for shortness of breath, cough, wheezing, and pleuritic chest pain, Abdomen/GI: Positive for abdominal pain and vomiting : Negative for injury, bleeding, discharge, and swelling, MS/Extremity: Negative for injury and deformity, Skin: Negative for injury, rash, and discoloration, Neuro: Negative for numbness, tingling, and seizure. 17:33 All other systems are negative. Exam: 14:55 ECG was reviewed by the Attending Physician. rn 17:33 Constitutional: This is a well developed, well nourished patient who is awake, alert, rn holding emesis bag and appears uncomfortable Head/Face: Normocephalic, atraumatic. Eyes: Periorbital areas with no swelling, redness, or edema. Cardiovascular: Regular rate and rhythm. No pulse deficits. Respiratory: No increased work of breathing, no retractions or nasal flaring. Abdomen/GI: Soft, non-tender Skin: Warm, dry MS/ Extremity: Pulses equal, no cyanosis. Neuro: Awake and alert, GCS 15, oriented to person, place, time, and situation. Cranial nerves II-XII grossly intact. Motor strength 5/5 in all extremities. Sensory grossly intact. Cerebellar exam normal. Vital Signs: 14:53 BP 170 / 87; Pulse 66; Resp 18; Temp 97.9; Pulse Ox 100% on R/A; Weight 117.93 kg (M); tw2 Height 5 ft. 11 in. (180.34 cm); Pain 10/10; 15:19 BP 156 / 65; Pulse 55; Resp 14; Pulse Ox 100% on R/A; Pain 10/10; tw5 16:40 Pain 4/10; tw5 17:08 BP 144 / 97; Pulse 61; Resp 18; Temp 98.1; Pulse Ox 99% on R/A; Pain 4/10; tw5 17:55 BP 185 / 88; Pulse 67; Resp 18; Pulse Ox 99% on R/A; Pain 0/10; tw5 20:53 BP 148 / 79; Pulse 54; Resp 16; Temp 98.6; Pulse Ox 98% ; Pain 6/10; bs2 21:46 BP 158 / 93; Pulse 56; Resp 15; Temp 98.6; Pulse Ox 99% ; Pain 3/10; bs2 22:15 BP 159 / 88; Pulse 70; Resp 16; Temp 98.6; Pulse Ox 100% ; Pain 2/10; bs2 14:53 Body Mass Index 36.26 (117.93 kg, 180.34 cm) tw2 MDM: 14:55 Patient medically screened. rn 18:56 Differential diagnosis: AAA, diverticulitis, gastritis, gastroesophageal reflux rn disease, non-specific abd pain, pancreatitis, Peptic Ulcer Disease, Perf. Duodenal Ulcer. Data reviewed: vital signs, nurses notes, lab test result(s), EKG, radiologic studies, CT scan, plain films, and as a result, I will admit patient. Data interpreted: inventory clerk: rate is 67 beats/min, rhythm is normal sinus rhythm, regular, with no ectopy, Interpretation: normal rate, normal rhythm, Pulse oximetry: on room air is 99 %. Interpretation: normal. Counseling: I had a detailed discussion with the patient and/or guardian regarding: the historical points, exam findings, and any diagnostic results supporting the discharge/admit diagnosis, lab results, radiology results, the need for further work-up and treatment in the hospital. Response to treatment: the patient's symptoms have mildly improved after treatment, and as a result, I will admit patient. Admission orders: after a detailed discussion of the patient's condition and case, the admit orders are written by me. ED course: Patient improved. CT aorta no acute findings. EKG nonspecific but no STEMI. Patient still uncomfortable but states GI cocktail slightly helped. Troponin is negative. Will admit for cardiac rule out.. 09/04 15:02 Order name: Basic Metabolic Panel rn 09/04 15:02 Order name: CBC with Diff rn 09/04 15:02 Order name: LFT's rn 09/04 15:02 Order name: NT PRO-BNP rn 09/04 15:02 Order name: PT-INR rn 09/04 15:02 Order name: Troponin (emerg Dept Use Only) rn 09/04 15:59 Order name: CBC with Automated Diff; Complete Time: 16:54 EDMS 09/04 16:00 Order name: Protime (+INR); Complete Time: 16:54 EDMS 09/04 16:29 Order name: CBC Smear Scan; Complete Time: 16:54 EDMS 09/04 16:45 Order name: Basic Metabolic Panel; Complete Time: 16:54 EDNY 09/04 16:45 Order name: Liver (Hepatic) Function; Complete Time: 16:54 [facility] 09/04 16:45 Order name: Troponin I; Complete Time: 16:54 [facility] 09/04 16:45 Order name: NT PRO-BNP; Complete Time: 16:54 [facility] 09/04 15:02 Order name: XRAY Chest (1 view) 09/04 15:02 Order name: CT Head Brain wo Cont 09/04 15:02 Order name: CT Aorta for Dissection 09/04 16:26 Order name: RAD; Complete Time: 16:54 EDNY 09/04 17:49 Order name: CT; Complete Time: 17:55 [facility] 09/04 17:56 Order name: CT; Complete Time: 18:45 [facility] 09/04 18:59 Order name: Procalcitonin la 09/04 20:00 Order name: COVID-19 (Coronavirus) Document "Date of Onset" if Symptomatic [facility] 09/04 20:09 Order name: CORONAVIRUS [facility] 09/04 21:03 Order name: SARS-COV-2 RT PCR [facility] 09/04 15:02 Order name: EKG; Complete Time: 16:44 09/04 15:02 Order name: Cardiac monitoring; Complete Time: 15:22 09/04 15:02 Order name: EKG - Nurse/Tech; Complete Time: 15:08 09/04 15:02 Order name: IV Saline Lock; Complete Time: 15:35 09/04 15:02 Order name: Labs collected and sent; Complete Time: 15:35 09/04 15:02 Order name: O2 Per Protocol; Complete Time: 15:22 09/04 15:02 Order name: O2 Sat Monitoring; Complete Time: 15:22 rn EC:55 Rate is 62 beats/min. Rhythm is regular. QRS [place] is Normal. [place] interval is normal. QRS rn interval is normal. QT interval is normal. No Q waves. T waves are Normal. No ST changes noted. Clinical impression: NSR w/ Non-specific ST/T Changes. Interpreted by me. Reviewed by me. Administered Medications: 15:25 Drug: Zofran (Ondansetron) 4 mg Route: IVP; Site: right antecubital; tw5 15:48 Follow up: Response: No adverse reaction; Nausea is decreased tw5 15:27 Drug: NS 0.9% 1000 ml Route: IV; Rate: 1000 ml; Site: right antecubital; tw5 20:51 Follow up: IV Status: Completed infusion bs2 15:35 Drug: GI Cocktail without - (Maalox Suspension 30 ml, Lidocaine Liquid 2 % 15 tw5 ml) Route: PO; 15:48 Follow up: Response: No adverse reaction tw5 15:47 Drug: Dilaudid (HYDROmorphone) 1 mg Route: IVP; Site: right antecubital; tw5 16:40 Follow up: Pain 4/10 Adult; Response: No adverse reaction; Pain is decreased; RASS: tw5 Alert and Calm (0) 19:42 Drug: ProTONIX (pantoprazole) 40 mg Route: IVP; Site: right antecubital; bs2 20:50 Follow up: Response: No adverse reaction bs2 19:42 Drug: NS 0.9% 500 ml Route: IV; Rate: bolus; Site: right antecubital; bs2 20:50 Follow up: IV Status: Completed infusion bs2 19:42 Drug: Aspirin Chewable Tablet 324 mg Route: PO; bs2 20:50 Follow up: Response: No adverse reaction bs2 Disposition Summary: 09/04/21 18:59 Hospitalization Ordered Hospitalization Status: Observation rn Provider: Preet Bullock [facility]n [facility] rn Condition: Stable rn Problem: new rn Symptoms: have improved rn Bed/Room Type: Standard rn Room Assignment: 426(09/04/21 21:16) eb1 Diagnosis - Chest pain, unspecified rn - Abdominal pain, unspecified rn Forms: - Medication Reconciliation Form rn - SBAR form rn Signatures: Dispatcher [employer] Fritz Shelby MD MD rn Attema, Lee, FNP-C FNP-Jeana Porter, RN RN tw2 Staci Garcia RN RN eb1 Vidhi Zamudio, RN RN bs2 Hannah Abraham tw5 Corrections: (The following items were deleted from the chart) 21:16 18:59 rn eb1
--- NOTE | 2021-09-04 18:59 | ER ---
Nurse's Notes [facility] Name: Ramu Bhat Age: 55 yrs Sex: Male : 1965 Arrival Date: 09/04/2021 Time: 14:42 Bed 14 Private MD: Diagnosis: Chest pain, unspecified;Abdominal pain, unspecified Presentation: 09/04 14:44 Chief complaint: Patient states: i woke up at 3 am vomiting. my chest pain started tw2 hurting 3 hours ago. little shortness of breath that started with the chest pain. Coronavirus screen: nausea, shortness of breath, Client presents with at least one sign or symptom that may indicate coronavirus-19. Standard/surgical mask placed on the client. Provider contacted for isolation considerations. Ebola Screen: Patient denies travel to an Ebola-affected area in the 21 days before illness onset. 14:44 Method Of Arrival: Wheelchair tw2 14:53 Initial Sepsis Screen: Does the patient meet any 2 criteria? No. Patient's initial tw2 sepsis screen is negative. Does the patient have a suspected source of infection? No. Patient's initial sepsis screen is negative. Risk Assessment: Do you want to hurt yourself or someone else? Patient reports no desire to harm self or others. Onset of symptoms was September 04, 2021. 14:53 Acuity: WILLIAM 3 tw2 Triage Assessment: 14:50 General: Appears uncomfortable, obese, Behavior is calm, cooperative, appropriate for tw2 age. Pain: Complains of pain in chest. Cardiovascular: Reports chest pain, diaphoresis. GI: Reports nausea, vomiting. Historical: - Allergies: 14:45 No Known Drug Allergies; tw2 - Home Meds: 14:45 metoprolol succinate 25 mg Oral Tb24 1 tab once daily [Active]; atorvastatin 80 mg Oral tw2 tab 1 tab once daily [Active]; aspirin 81 mg oral tab [Active]; - PMHx: 14:45 Hypertension; Kidney stones; STEMI; tw2 - PSHx: 14:45 Cholecystectomy; triple bypass; tw2 - Immunization history:: Client reports receiving the 2nd dose of the Covid vaccine. - Social history:: Smoking status: Patient denies any tobacco usage or history of. - Family history:: not pertinent. - Hospitalizations: : No recent hospitalization is reported. Screenin:19 Abuse screen: Denies threats or abuse. Denies injuries from another. Nutritional tw5 screening: No deficits noted. Tuberculosis screening: No symptoms or risk factors identified. Fall Risk None identified. Assessment: 15:19 General: Appears uncomfortable, Behavior is agitated, anxious, restless. Pain: tw5 Complains of pain in abdomen, Headache Pain currently is 10 out of 10 on a pain scale. Pain began suddenly, 0300 this morning. GI: Reports nausea, vomiting. 15:22 General: Reports " Oh god this hurts, something needs to be done". tw5 15:35 General: " Can I get some dilauded?". GI: Pt is actively vomiting clear fluid, properly tw5 vomited up GI coctail. 17:08 Reassessment: Patient states feeling better. Patient states symptoms have improved. tw5 Pain: Pain does not radiate. Pain currently is 4 out of 10 on a pain scale. 17:55 General: " I have a ringing in my ears". tw5 17:55 Pain: Denies pain. tw5 Vital Signs: 14:53 BP 170 / 87; Pulse 66; Resp 18; Temp 97.9; Pulse Ox 100% on R/A; Weight 117.93 kg (M); tw2 Height 5 ft. 11 in. (180.34 cm); Pain 10/10; 15:19 BP 156 / 65; Pulse 55; Resp 14; Pulse Ox 100% on R/A; Pain 10/10; tw5 16:40 Pain 4/10; tw5 17:08 BP 144 / 97; Pulse 61; Resp 18; Temp 98.1; Pulse Ox 99% on R/A; Pain 4/10; tw5 17:55 BP 185 / 88; Pulse 67; Resp 18; Pulse Ox 99% on R/A; Pain 0/10; tw5 20:53 BP 148 / 79; Pulse 54; Resp 16; Temp 98.6; Pulse Ox 98% ; Pain 6/10; bs2 21:46 BP 158 / 93; Pulse 56; Resp 15; Temp 98.6; Pulse Ox 99% ; Pain 3/10; bs2 22:15 BP 159 / 88; Pulse 70; Resp 16; Temp 98.6; Pulse Ox 100% ; Pain 2/10; bs2 14:53 Body Mass Index 36.26 (117.93 kg, 180.34 cm) tw2 ED Course: 14:42 Patient arrived in ED. mr 14:50 Arm band placed on. EKG completed in triage. Results shown to MD. tw2 14:54 Triage completed. tw2 14:55 Fritz Bang MD is Attending Physician. rn 15:07 Hannah Abraham is Primary Nurse. tw5 15:19 Appears agitated. Appears restless. tw5 15:19 Patient has correct armband on for positive identification. pull through hooker on. Pulse tw5 ox on. NIBP on. Door closed. Noise minimized. Moved to private room. Verbal reassurance given. 15:35 Initial lab(s) drawn, by me, sent to lab. Inserted saline lock: 20 gauge in right tw5 antecubital area, using aseptic technique. 15:37 Lights dimmed. Warm blanket given. tw5 17:08 No provider procedures requiring assistance completed. Patient maintains SpO2 tw5 saturation greater than 95% on room air. 18:59 Preet Bullock DO is Hospitalizing Provider. rn 20:07 COVID-19 (Coronavirus) Document "Date of Onset" if Symptomatic Sent. bs2 20:50 CORONAVIRUS Sent. bs2 21:46 Patient admitted, IV remains in place. bs2 Administered Medications: 15:25 Drug: Zofran (Ondansetron) 4 mg Route: IVP; Site: right antecubital; tw5 15:48 Follow up: Response: No adverse reaction; Nausea is decreased tw5 15:27 Drug: NS 0.9% 1000 ml Route: IV; Rate: 1000 ml; Site: right antecubital; tw5 20:51 Follow up: IV Status: Completed infusion bs2 15:35 Drug: GI Cocktail without - (Maalox Suspension 30 ml, Lidocaine Liquid 2 % 15 tw5 ml) Route: PO; 15:48 Follow up: Response: No adverse reaction tw5 15:47 Drug: Dilaudid (HYDROmorphone) 1 mg Route: IVP; Site: right antecubital; tw5 16:40 Follow up: Pain 4/10 Adult; Response: No adverse reaction; Pain is decreased; RASS: tw5 Alert and Calm (0) 19:42 Drug: ProTONIX (pantoprazole) 40 mg Route: IVP; Site: right antecubital; bs2 20:50 Follow up: Response: No adverse reaction bs2 19:42 Drug: NS 0.9% 500 ml Route: IV; Rate: bolus; Site: right antecubital; bs2 20:50 Follow up: IV Status: Completed infusion bs2 19:42 Drug: Aspirin Chewable Tablet 324 mg Route: PO; bs2 20:50 Follow up: Response: No adverse reaction bs2 Outcome: 18:59 Decision to Hospitalize by Provider. rn 21:45 Admitted to Tele accompanied by tech, via wheelchair, room 426, with chart. bs2 21:45 Condition: stable 21:45 Instructed on the need for admit. 22:16 Patient left the ED. bs2 Signatures: Shelly Montero Roman, MD MD rn Wise, Tara, RN RN tw2 Vidhi Zamudio RN RN bs2 Hannah Abraham tw5
--- NOTE | 2021-09-04 19:34 | P.HP ---
Certification for Inpatient Patient admitted to: Observation With expected LOS: <2 Midnights Patient will require the following post-hospital care: None Practitioner: I am a practitioner with admitting privileges, knowledge of patient current condition, hospital course, and medical plan of care. Services: Services provided to patient in accordance with Admission requirements found in Title 42 Section 412.3 of the Code of Federal Regulations Patient History Date of Service: 09/04/21 Primary Care Provider: Dr. tan, Dr. Liang Reason for admission: Chest pain History of Present Illness: 55-year-old male with history of CAD status post CABG, hypertension presents emergency department for chest pain. Patient reports pain began this morning described as sharp, stabbing radiating to the back with associated diaphoresis and vomiting. Patient was evaluated in the emergency department labs were significant for white blood cell count 17.1 glucose 130 2T bili 1.2D bili 0.[address] dissection protocol demonstrated no acute aortic finding with mild diffuse COPD. Patient had systemic steroid injection recently which could explain his elevated white blood cell count initial troponin negative EKG without acute changes, ED provider wishes to admit under observation for chest pain. Allergies No Known Drug Allergies Allergy (Verified 04/12/18 22:58) Unknown No Known Allergies Allergy (Uncoded 01/25/17 22:05) Unknown Home Medications: Aspirin [Aspirin EC 81 MG] 81 mg PO DAILY #90 tablet. 04/13/18 Atorvastatin Calcium [Lipitor] 40 mg PO BEDTIME #30 tab 04/13/18 Clopidogrel Bisulfate [Plavix*] 75 mg PO DAILY #30 tablet 04/13/18 Metoprolol Tartrate [Lopressor*] 50 mg PO BID #60 tab 04/13/18 - Past Medical/Surgical History Diabetic: No -: Hypertension -: CAD -: Kidney stones -: Cardiac Stents - December 21 2016 -: CABG 2019 three-vessel -: Cholecystectomy Psychosocial/ Personal History: Disabled, lives at home with his family - Family History Mother -: Diabetes, Cancer Notes: bone marrow cancer Father -: Heart disease, Hypertension Notes: CA - Social History Smoking Status: Never smoker Alcohol use: No CD- Drugs: No Caffeine use: Yes Place of Residence: Home Review of Systems 10-point ROS is otherwise unremarkable Cardiovascular: Chest Pain Gastrointestinal: Nausea, Vomiting, Abdominal Pain Physical Examination - Physical Exam General: Alert, In no apparent distress HEENT: Atraumatic, PERRLA, Mucous membr. moist/pink, EOMI, Sclerae nonicteric Neck: Supple, 2+ carotid pulse no bruit, No LAD, Without JVD or thyroid abnormality Respiratory: Clear to auscultation bilaterally, Normal air movement Cardiovascular: Regular rate/rhythm, Normal S1 S2 Gastrointestinal: Normal bowel sounds, No tenderness Musculoskeletal: No tenderness Integumentary: No rashes Neurological: Normal gait, Normal speech, Normal strength at 5/5 x4 extr, Normal tone, Normal affect Lymphatics: No axilla or inguinal lymphadenopathy - Studies Laboratory Data (last 24 hrs) 09/04/21 15:33: PT 12.6 H, INR 1.09 09/04/21 15:33: WBC 17.10 H, Hgb 15.5, Hct 44.2, Plt Count 315 09/04/21 15:33: Sodium 140, Potassium 3.6, BUN 23 H, Creatinine 1.10, Glucose 132 H, Total Bilirubin 1.2 H, AST 19, ALT 34, Alkaline Phosphatase 96, Troponin I < 0.02 Assessment and Plan - Plan Assessment: Chest pain rule out ACShistory CAD status post CABG/stents Hypertension Hyperlipidemia Plan: Chest pain rule out ACShistory CAD status post CABG/stents: Three-vessel CABG 2019, patient denies any further evaluation since then. Initial troponin/EKG unremarkable, will trend troponin, monitor on telemetry, cardiology consult in place. Continue with daily beta-raul, aspirin, statin therapy. As needed morphine. Hypertension: Metoprolol succinate 25 mg p.o. daily continued Hyperlipidemia: Atorvastatin 80 mg p.o. nightly continued DVT PPX: Lovenox Code status: Full Discharge Plan: Home Plan to discharge in: 24 Hours - Advance Directives Does patient have a Living Will: No Does patient have a Durable POA for Healthcare: No - Code Status/Comfort Care Code Status Assessed: Yes (Full code) Critical Care: No Time Spent Managing Pts Care (In Minutes): 55
[2021-09-04] MEDS ORDERED: ASPIRIN EC 81 MG TAB PO ONE (19:53)
[2021-09-04] MEDS ORDERED: PANTOPRAZOLE 40 MG INJ ONE (19:54)
[2021-09-04] MEDS ORDERED: NA CHLORIDE 0.9% 500 ML ONE (19:54)
[2021-09-04] MEDS ORDERED: ATORVASTATIN 80 MG TAB PO SCH (21:27)
[2021-09-04] MEDS ORDERED: ACETAMINOPHEN 500 MG TAB PO PRN (21:27)
[2021-09-04] MEDS ORDERED: PANTOPRAZOLE 40 MG INJ IVP SCH (21:27)
[2021-09-04] MEDS ORDERED: TRAZODONE 50 MG TABLET PO PRN (21:27)
[2021-09-04] MEDS ORDERED: ONDANSETRON 4 MG/2 ML VIAL IV PRN (21:27)
[2021-09-04] MEDS ORDERED: SODIUM CHLORIDE 0.9% 10ML INJ IV PRN (21:27)
[2021-09-04] MEDS: MORPHINE 2 MG/ML SYR IV PRN (22:53)
[2021-09-04 22:59] VITALS: BMI 37.3
[2021-09-04 23:21] VITALS: O2SAT 98
[2021-09-05 03:54] VITALS: BP 98/59; TEMP 96.8
[2021-09-05 04:03] LABS: Absolute Lymphocytes (CBC) 2.5 K/uL (0.7-4.9); Basophils % 0.5 % (0-1.3); Hematocrit 38.9 % (39.6-49.0); Lymphocytes % 22.6 % (15.3-44.8); MPV 9.2 fL (7.6-11.3); RBC Red Blood Cell Count 4.16 M/uL (4.33-5.43)
[2021-09-05 04:07] LABS: Urine Appearance CLEAR (Clear); Urine Bilirubin NEGATIVE (Negative); Urine Blood NEGATIVE (Negative); Urine Color DK YELLOW (Yellow); Urine Glucose NEGATIVE (Negative); Urine Protein NEGATIVE (Negative); Urine Specific Gravity >=1.030 (1.005-1.030); Urine pH 5.5 (5.0-7.0)
[2021-09-05 04:23] LABS: Urine Microscopic Reflex NO UMIC
[2021-09-05 04:30] LABS: ALT/SGPT 30 U/L (12-78); AST/SGOT 12 U/L (15-37); Albumin 3.3 g/dL (3.4-5.0); Alkaline Phosphatase 75 U/L (45-117); BUN Blood Urea Nitrogen 20 mg/dL (7-18); Bicarbonate 27 mmol/L (21-32); Bilirubin Total 0.9 mg/dL (0.2-1.0); Glucose Level 106 mg/dL (74-106); HDL Cholesterol 42 mg/dL (40-60); LDL Cholesterol, Calculated 41 (<130); Magnesium 2.3 mg/dL (1.8-2.4); Potassium 4.1 mmol/L (3.5-5.1); Protein, Total 6.5 g/dL (6.4-8.2); Sodium Level 142 mmol/L (136-145); Thyroid Stimulating Hormone 0.808 uIU/mL (0.360-3.740); Troponin I < 0.02 ng/mL (0.0-0.045)
[2021-09-05] MEDS: MORPHINE 2 MG/ML SYR IV PRN (04:45)
[2021-09-05] MEDS ORDERED: METOPROLOL XL 25 MG TAB PO SCH (06:00)
--- NOTE | 2021-09-05 06:17 | P.DS ---
Admission Date: 09/04/21 Discharge Date: 09/05/21 Primary Care Provider: Dr. Beth, Cardiology-Dr. Liang Disposition: ROUTINE DISCHARGE Discharge Condition: GOOD Reason for Admission: Chest pain Consultations: none Procedures: COVID: negative CT Dissection: COMPARISON: Angio Aorta For Dissection dated 01/25/2017 TECHNIQUE: CT angiography of the aorta was performed with MIPs. All CT scans are performed using dose optimization technique as appropriate and may include automated exposure control or mA/KV adjustment according to patient size. FINDINGS: A left aortic arch is present with bovine configuration pattern of the great vessels.No acute aortic finding is seen such as aneurysm, penetrating ulcer or dissection. The celiac axis, SMA, ALISA and renal arteries are patent. No evidence of pulmonary embolism. Mild diffuse COPD is present. The liver demonstrates no focal mass or biliary dilatation.The spleen, pancreas, adrenal glands and kidneys are within normal limits for arterial phase imaging. No bowel obstruction, free fluid or abscess.Normal appendix.No pathologic enlarged lymphadenopathy identified. No fracture or worrisome bone lesion seen. IMPRESSION: No acute aortic finding is demonstrated. Mild diffuse COPD. CT Head: COMPARISON: No comparisons TECHNIQUE: All CT scans are performed using dose optimization technique as appropriate and may include automated exposure control or mA/KV adjustment according to patient size. FINDINGS: No intracranial hemorrhage, hydrocephalus or extra-axial fluid collection.No areas of brain edema or evidence of midline shift. The paranasal sinuses and mastoids are clear. The calvarium is intact. IMPRESSION: No acute intracranial abnormality. Medical problem list: Chest pain likely GERD related History of CAD with prior CABG and stents Hypertension Hyperlipidemia Obesity, BMI 37.3 Brief History of Present Illness: 55-year-old male with history of CAD status post CABG, hypertension, hyperlipidemia and obesity. Patient presented with chest pain. He reported the pain radiating from his abdomen to the chest and to the back. It was associated with some nausea and vomiting. CT scan showed no acute finding. Patient was admitted for further evaluation and treatment. Hospital Course: Patient presented with chest pain. Patient with history of CAD with prior CABG and stent, hypertension and hyperlipidemia. Patient was admitted for further evaluation and treatment. Cardiac enzymes unremarkable. Patient reports seen by cardiology last week. He had a stress test and echocardiogram which were unremarkable. Symptoms improved. CT dissection shows no acute abnormality. CT head unremarkable. Patient reported that he supposed to get an EGD soon to evaluate for possible GERD. Chest pain likely GERD related. Cardiology was consulted. Patient preferred not to have cardiology seen at this time as the patient recently had significant cardiac work-up last week with his cardiologistDr. Liang. At discharge will recommend to continue Protonix 40 mg daily. GERD education provided. Recommend follow-up with PCP within 1 week to follow-up his hospitalization. Consider following up with GI as an outpatient for EGD evaluation. Patient with history of CAD and prior CABG and stent. Patient is seen by cardiology. Patient had significant cardiac work-up last week with cardiac stress test and echocardiogram which were unremarkable as per patient. At discharge patient will continue with his current medications of aspirin 81 mg daily. Patient with hypertension. Overall stable. At discharge patient will continue with his current medication of metoprolol 50 mg daily. Recommend to maintain blood pressure less than 130/80. Further adjustment can be done by his PCP or cardiology. Patient with hyperlipidemia. LDL within normal range. At discharge patient will continue with his Lipitor 40 mg daily. Patient with obesity, BMI 37.3. Lifestyle modification education provided. Vital Signs/Physical Exam: Temp Pulse Resp BP Pulse Ox 96.8 F 66 17 98/59 L 96 09/05/21 03:53 09/05/21 03:53 09/05/21 03:53 09/05/21 05:56 09/05/21 03:53 General: Alert, In no apparent distress, Oriented x3, Cooperative HEENT: Atraumatic Neck: Supple Respiratory: Clear to auscultation bilaterally, Normal air movement Cardiovascular: Normal pulses, Regular rate/rhythm Gastrointestinal: Normal bowel sounds, No ascites, No tenderness, No masses, No rebound, No guarding Musculoskeletal: No erythema, No tenderness, No warmth Integumentary: No tenderness/swelling, No erythema, No warmth, No cyanosis Neurological: Normal speech, Normal strength at 5/5 x4 extr, Normal tone, Normal affect Laboratory Data at Discharge: WBC 11.30 K/uL (4.3-10.9) H D 09/05/21 03:32 Hgb 13.6 g/dL (13.6-17.9) 09/05/21 03:32 Hct 38.9 % (39.6-49.0) L 09/05/21 03:32 Plt Count 285 K/uL (152-406) 09/05/21 03:32 PT 12.6 SECONDS (9.5-12.5) H 09/04/21 15:33 INR 1.09 09/04/21 15:33 Sodium 142 mmol/L (136-145) 09/05/21 03:32 Potassium 4.1 mmol/L (3.5-5.1) 09/05/21 03:32 BUN 20 mg/dL (7-18) H 09/05/21 03:32 Creatinine 0.96 mg/dL (0.55-1.3) 09/05/21 03:32 Glucose 106 mg/dL (74-106) 09/05/21 03:32 Magnesium 2.3 mg/dL (1.8-2.4) 09/05/21 03:32 Total Bilirubin 0.9 mg/dL (0.2-1.0) 09/05/21 03:32 AST 12 U/L (15-37) L 09/05/21 03:32 ALT 30 U/L (12-78) 09/05/21 03:32 Alkaline Phosphatase 75 U/L (45-117) 09/05/21 03:32 Troponin I < 0.02 ng/mL (0.0-0.045) 09/05/21 03:32 Triglycerides 91 mg/dL (<150) 09/05/21 03:32 Cholesterol 101 mg/dL (<200) 09/05/21 03:32 HDL Cholesterol 42 mg/dL (40-60) 09/05/21 03:32 Cholesterol/HDL Ratio 2.40 09/05/21 03:32 Home Medications: Aspirin [Aspirin EC 81 MG] 81 mg PO DAILY #90 tablet. 04/13/18 Atorvastatin Calcium [Lipitor] 40 mg PO BEDTIME #30 tab 04/13/18 Metoprolol Tartrate [Lopressor*] 50 mg PO DAILY 09/04/21 Pantoprazole [Protonix Tab*] 40 mg PO DAILYAC #30 tab 09/05/21 New Medications: Pantoprazole [Protonix Tab*] 40 mg PO DAILYAC #30 tab Physician Discharge Instructions: Patient presented with chest pain. Patient with history of CAD with prior CABG and stent, hypertension and hyperlipidemia. Patient was admitted for further evaluation and treatment. Cardiac enzymes unremarkable. Patient reports seen by cardiology last week. He had a stress test and echocardiogram which were unremarkable. Symptoms improved. CT dissection shows no acute abnormality. CT head unremarkable. Patient reported that he supposed to get an EGD soon to evaluate for possible GERD. Chest pain likely GERD related. Cardiology was consulted. Patient preferred not to have cardiology seen at this time as the patient recently had significant cardiac work-up last week with his cardiologistDr. Liang. At discharge will recommend to continue Protonix 40 mg daily. GERD education provided. Recommend follow-up with PCP within 1 week to follow-up his hospitalization. Consider following up with GI as an outpatient for EGD evaluation. Patient with history of CAD and prior CABG and stent. Patient is seen by cardiology. Patient had significant cardiac work-up last week with cardiac stress test and echocardiogram which were unremarkable as per patient. At discharge patient will continue with his current medications of aspirin 81 mg daily. Patient with hypertension. Overall stable. At discharge patient will continue with his current medication of metoprolol 50 mg daily. Recommend to maintain blood pressure less than 130/80. Further adjustment can be done by his PCP or cardiology. Patient with hyperlipidemia. LDL within normal range. At discharge patient will continue with his Lipitor 40 mg daily. Patient with obesity, BMI 37.3. Lifestyle modification education provided. Diet: AHA Activity: Ad salma Followup: NONE,NONE [Primary Care Provider] - Time spent managing pt's care (in minutes): 55
[2021-09-05] MEDS ORDERED: ENOXAPARIN 40 MG/0.4 ML SQ SCH (09:00)
[2021-09-05] MEDS ORDERED: ASPIRIN EC 81 MG TAB PO SCH (09:00)
[2021-09-06] MEDS ORDERED: PANTOPRAZOLE 40MG TABLET PO SCH (06:30)
== END 2021-09-05 09:25 | disposition home or self-care (01) ==
LOC: ER 14:39 → ERHOLD 19:59 → 4TH 21:56
PROVIDERS: ADMIT Family Medicine; ATTEND Family Medicine
DX: R07.9 Chest pain, unspecified (principal); I25.10 Atherosclerotic heart disease of native coronary artery without angina pectoris; I10 Essential (primary) hypertension; E78.5 Hyperlipidemia, unspecified; J44.9 Chronic obstructive pulmonary disease, unspecified; R10.9 Unspecified abdominal pain; I25.2 Old myocardial infarction; E66.9 Obesity, unspecified; Z68.37 Body mass index [BMI] 37.0-37.9, adult; Z95.1 Presence of aortocoronary bypass graft; Z95.5 Presence of coronary angioplasty implant and graft; Z20.822 Contact with and (suspected) exposure to COVID-19; Z79.02 Long term (current) use of antithrombotics/antiplatelets; Z79.82 Long term (current) use of aspirin; Z79.899 Other long term (current) drug therapy; Z87.442 Personal history of urinary calculi; Z90.49 Acquired absence of other specified parts of digestive tract; Z83.3 Family history of diabetes mellitus; Z82.49 Family history of ischemic heart disease and other diseases of the circulatory system; Z80.8 Family history of malignant neoplasm of other organs or systems
CPT/HCPCS: 96361; 93005; 85025 ×2; 80048; 36415; 83735; 85610; 80061; 80076; 84443; 81003; 84484 ×3; 84439; 80053; 84145; 83880; 70450; 71275; 74175; 71045; 96375; 96374; 99285; U0003; Q9967; C9113; J1650; J2270 ×3; J1170; J7040; J7030; J2405 ×2; G0378 ×3

== ENCOUNTER 2022-12-09 03:24 | Emergency (ER) | payer OTHER ==
[2022-12-09] MEDS ORDERED: ASPIRIN 81 MG CHEWABLE TABLET ONE (03:44)
[2022-12-09] MEDS ORDERED: FAMOTIDINE 20 MG/2 ML VIAL IV ONE (03:45)
[2022-12-09 04:05] LABS: Protime INR 1.09
[2022-12-09 04:07] LABS: Hematocrit 42.3 % (39.6-49.0); Lymphocytes % 25.7 % (15.3-44.8); MCV 92.4 fL (80-100); MPV 9.1 fL (7.6-11.3); RBC Red Blood Cell Count 4.58 M/uL (4.33-5.43)
[2022-12-09] MEDS ORDERED: AZITHROMYCIN 250 MG TAB ONE (04:07)
[2022-12-09 04:20] LABS: Albumin 3.5 g/dL (3.4-5.0); Bilirubin Direct 0.2 mg/dL (0-0.2); Bilirubin Total 0.9 mg/dL (0.2-1.0); Magnesium 2.1 mg/dL (1.6-2.4); Protein, Total 6.9 g/dL (6.4-8.2); Troponin High Sensitivity 6.9 pg/mL (<58.9)
[2022-12-09 04:41] LABS: SARS-CoV-2 Antigen Rapid Res Negative (Negative)
[2022-12-09] MEDS ORDERED: KETOROLAC 30 MG/ML INJ ONE (05:04)
[2022-12-09] MEDS ORDERED: ONDANSETRON 4 MG/2 ML VIAL ONE (05:04)
--- NOTE | 2022-12-09 06:38 | ER ---
Nurse's Notes [facility] Name: Ramu Bhat Age: 56 yrs Sex: Male : 1965 Arrival Date: 12/09/2022 Time: 03:26 Bed 14 Private MD: Diagnosis: Acute upper respiratory infection, unspecified;Cough;Obesity, unspecified Presentation: 12/09 03:46 Chief complaint: Patient states: he has been feeling ill the last few days thinks he bb has a cold with fever, stuffy nose, aches and difficulty breathing. Coronavirus screen: Client presents with at least one sign or symptom that may indicate coronavirus-19. Ebola Screen: No symptoms or risks identified at this time. Initial Sepsis Screen: Does the patient meet any 2 criteria? No. Patient's initial sepsis screen is negative. Does the patient have a suspected source of infection? No. Patient's initial sepsis screen is negative. Risk Assessment: Do you want to hurt yourself or someone else? Patient reports no desire to harm self or others. Onset of symptoms was December 05, 2022. 03:46 Method Of Arrival: Ambulatory bb 03:46 Acuity: WILLIAM 3 bb Triage Assessment: 03:52 General: Appears in no apparent distress. obese, Behavior is calm, cooperative. aa9 Cardiovascular: Patient's skin is warm and dry. Historical: - Allergies: 03:48 No Known Allergies; bb - Home Meds: 03:48 aspirin 81 mg Oral tab [Active]; atorvastatin 80 mg Oral tab 1 tab once daily [Active]; bb metoprolol succinate 25 mg Oral Tb24 1 tab once daily [Active]; tamsulosin oral [Active]; - PMHx: 03:48 Hypertension; Kidney stones; STEMI; Coronary atherosclerosis; bb - PSHx: 03:48 Cholecystectomy; triple bypass; bb - Immunization history:: Client reports receiving the 2nd dose of the Covid vaccine, Pfizer. - Social history:: Smoking status: Patient denies any tobacco usage or history of. - Family history:: not pertinent. Screenin:52 [facility] ED Fall Risk Assessment (Adult) History of falling in the last 3 months, aa9 including since admission No falls in past 3 months (0 pts) Confusion or Disorientation No (0 pts) Intoxicated or Sedated No (0 pts) Impaired Gait No (0 pts) Mobility Assist Device Used No (0 pt) Altered Elimination No (0 pt) Score/Fall Risk Level 0 - 2 = Low Risk. Abuse screen: Denies threats or abuse. Denies injuries from another. Nutritional screening: No deficits noted. Tuberculosis screening: No symptoms or risk factors identified. Assessment: 05:42 Reassessment: Patient appears in no apparent distress at this time. Patient and/or aa9 family updated on plan of care and expected duration. Pain level reassessed. Patient is alert, oriented x 3, equal unlabored respirations, skin warm/dry/pink. 07:06 Pain: Pain began gradually. Neuro: Level of Consciousness is awake, alert, obeys aa9 commands, Oriented to person, place, time, situation. Cardiovascular: Patient's skin is warm and dry. Respiratory: Airway is patent Respiratory effort is even, unlabored. GI: No signs and/or symptoms were reported involving the gastrointestinal system. 07:07 Pain: Pain does not radiate. aa9 07:07 Reassessment: Patient appears in no apparent distress at this time. Patient and/or aa9 family updated on plan of care and expected duration. Pain level reassessed. Patient is alert, oriented x 3, equal unlabored respirations, skin warm/dry/pink. Patient states feeling better. Vital Signs: 03:46 BP 147 / 90; Pulse 75; Resp 16 S; Temp 98.6(O); Pulse Ox 97% on R/A; Weight 120.2 kg bb (R); Height 5 ft. 10 in. (177.80 cm) (R); Pain 5/10; 05:00 BP 150 / 86; Pulse 61; Resp 19; Pulse Ox 98% on R/A; aa9 05:45 BP 151 / 88; Pulse 53; Resp 18 S; Pulse Ox 95% on R/A; aa9 03:46 Body Mass Index 38.02 (120.20 kg, 177.80 cm) bb ED Course: 03:26 Patient arrived in ED. ag3 03:33 Cipriano Pena MD is Attending Physician. jose daniel 03:48 Triage completed. bb 03:48 Arm band placed on Patient placed in an exam room, on a stretcher, on machine repairman, bb on pulse oximetry. EKG completed in triage. Results shown to . 03:51 Inserted saline lock: 20 gauge in right antecubital area, using aseptic technique. aa9 Blood collected. Patient maintains SpO2 saturation greater than 95% on room air. 03:51 SARS RAPID Sent. aa9 03:51 Lipase Sent. aa9 03:52 Placed in gown. Bed in low position. Client placed on continuous cardiac and pulse aa9 oximetry monitoring. NIBP monitoring applied. 03:52 Troponin HS Sent. aa9 03:52 Basic Metabolic Panel Sent. aa9 03:52 PT-INR Sent. aa9 03:52 CBC with Diff Sent. aa9 03:52 NT PRO-BNP Sent. aa9 03:52 LFT's Sent. aa9 03:52 Magnesium Sent. aa9 04:00 XRAY Chest (1 view) In Process Unspecified. EDMS 04:07 Lulu Avila, ANGELICA is Primary Nurse. aa9 06:01 Troponin High Sensitivity: 6am Sent. aa9 06:37 Esteban Liang MD is Referral Physician. jose daniel 07:06 No provider procedures requiring assistance completed. IV discontinued, intact, aa9 bleeding controlled, No redness/swelling at site. Pressure dressing applied. Administered Medications: 03:56 Drug: Pepcid (famotidine) 20 mg Route: IVP; Site: right antecubital; aa9 06:01 Follow up: Response: No adverse reaction aa9 03:57 Drug: Aspirin Chewable Tablet 324 mg Route: PO; aa9 06:01 Follow up: Response: No adverse reaction aa9 04:08 Drug: Zithromax (azithromycin) 500 mg Route: PO; aa9 06:01 Follow up: Response: No adverse reaction aa9 05:05 Drug: Zofran (Ondansetron) 4 mg Route: IVP; Site: right antecubital; as6 06:01 Follow up: Response: No adverse reaction aa9 05:05 Drug: Ketorolac 30 mg Route: IVP; Site: right antecubital; as6 06:01 Follow up: Response: No adverse reaction aa9 Medication: 03:53 VIS not applicable for this client. aa9 Outcome: 06:37 Discharge ordered by . jose daniel 07:06 Discharged to home ambulatory. aa9 07:06 Condition: stable 07:06 Discharge instructions given to patient, Instructed on discharge instructions, follow up and referral plans. medication usage, Demonstrated understanding of instructions, follow-up care, medications, Prescriptions given X 4. 07:07 Patient left the ED. aa9 Signatures: Dispatcher [employer] EDMS Cipriano Pena MD MD cha Ballard, Brenda, RN RN Lorie Vera3 Loi Chau RN RN as6 Lulu Avila RN RN aa9
--- NOTE | 2022-12-09 06:38 | EDPHYS ---
Physician Documentation [facility] Name: Ramu Bhat Age: 56 yrs Sex: Male : 1965 Arrival Date: 12/09/2022 Time: 03:26 Bed 14 Private MD: MIRIAN Physician Cipriano Pena HPI: 12/09 03:57 This 56 yrs old Male presents to ER via Ambulatory with complaints of Chest jose daniel Pain. 03:57 The patient or guardian reports chest pain that is located primarily in the anterior jose daniel chest wall, bilaterally. Onset: 2 day(s) ago. The pain radiates to chest. Associated signs and symptoms: Pertinent positives: cough, shortness of breath. The chest pain is described as sharp. Modifying factors: The symptoms are alleviated by nothing. the symptoms are aggravated by nothing. Severity of pain: At its worst the pain was mild in the emergency department the pain is unchanged. The patient has experienced similar episodes in the past, multiple times. Historical: - Allergies: 03:48 No Known Allergies; bb - Home Meds: 03:48 aspirin 81 mg Oral tab [Active]; atorvastatin 80 mg Oral tab 1 tab once daily [Active]; bb metoprolol succinate 25 mg Oral Tb24 1 tab once daily [Active]; tamsulosin oral [Active]; - PMHx: 03:48 Hypertension; Kidney stones; STEMI; Coronary atherosclerosis; bb - PSHx: 03:48 Cholecystectomy; triple bypass; bb - Immunization history:: Client reports receiving the 2nd dose of the Covid vaccine, Pfizer. - Social history:: Smoking status: Patient denies any tobacco usage or history of. - Family history:: not pertinent. ROS: 03:57 Constitutional: Negative for fever, chills, and weight loss, Eyes: Negative for injury, jose daniel pain, redness, and discharge, ENT: Negative for injury, pain, and discharge, Neck: Negative for injury, pain, and swelling, Abdomen/GI: Negative for abdominal pain, nausea, vomiting, diarrhea, and constipation, Back: Negative for injury and pain, : Negative for injury, bleeding, discharge, and swelling, MS/Extremity: Negative for injury and deformity, Skin: Negative for injury, rash, and discoloration, Neuro: Negative for headache, weakness, numbness, tingling, and seizure. 03:57 Cardiovascular: Positive for chest pain, with movement, of the chest. 03:57 Respiratory: Positive for cough, shortness of breath, at rest. Exam: 03:57 Constitutional: This is a well developed, well nourished patient who is awake, alert, jose daniel and in no acute distress. Head/Face: Normocephalic, atraumatic. Eyes: Pupils equal round and reactive to light, extra-ocular motions intact. Lids and lashes normal. Conjunctiva and sclera are non-icteric and not injected. Cornea within normal limits. Periorbital areas with no swelling, redness, or edema. ENT: Nares patent. No nasal discharge, no septal abnormalities noted. Tympanic membranes are normal and external auditory canals are clear. Oropharynx with no redness, swelling, or masses, exudates, or evidence of obstruction, uvula midline. Mucous membranes moist. Neck: Trachea midline, no thyromegaly or masses palpated, and no cervical lymphadenopathy. Supple, full range of motion without nuchal rigidity, or vertebral point tenderness. No Meningismus. Chest/axilla: Normal chest wall appearance and motion. Nontender with no deformity. No lesions are appreciated. Cardiovascular: Regular rate and rhythm with a normal S1 and S2. No gallops, murmurs, or rubs. Normal PMI, no JVD. No pulse deficits. Respiratory: Lungs have equal breath sounds bilaterally, clear to auscultation and percussion. No rales, rhonchi or wheezes noted. No increased work of breathing, no retractions or nasal flaring. Abdomen/GI: Soft, non-tender, with normal bowel sounds. No distension or tympany. No guarding or rebound. No evidence of tenderness throughout. Back: No spinal tenderness. No costovertebral tenderness. Full range of motion. Male : Normal genitalia with no discharge or lesions. Skin: Warm, dry with normal turgor. Normal color with no rashes, no lesions, and no evidence of cellulitis. MS/ Extremity: Pulses equal, no cyanosis. Neurovascular intact. Full, normal range of motion. Neuro: Awake and alert, GCS 15, oriented to person, place, time, and situation. Cranial nerves II-XII grossly intact. Motor strength 5/5 in all extremities. Sensory grossly intact. Cerebellar exam normal. Normal gait. Psych: Awake, alert, with orientation to person, place and time. Behavior, mood, and affect are within normal limits. 03:57 ECG was reviewed by the Attending Physician. 06:00 ECG was reviewed by the Attending Physician. jose daniel Vital Signs: 03:46 BP 147 / 90; Pulse 75; Resp 16 S; Temp 98.6(O); Pulse Ox 97% on R/A; Weight 120.2 kg bb (R); Height 5 ft. 10 in. (177.80 cm) (R); Pain 5/10; 05:00 BP 150 / 86; Pulse 61; Resp 19; Pulse Ox 98% on R/A; aa9 05:45 BP 151 / 88; Pulse 53; Resp 18 S; Pulse Ox 95% on R/A; aa9 03:46 Body Mass Index 38.02 (120.20 kg, 177.80 cm) bb MDM: 03:33 Patient medically screened. jose daniel 03:59 Differential diagnosis: abnormal EKG, acute myocardial infarction, acute pericarditis, jose daniel Cholelithiasis gastroesophageal reflux disease (GERD), peptic ulcer disease, pneumonia, pulmonary embolus, stable angina, unstable angina. HEART Score: History: Slightly Suspicious (0), ECG: Normal (0), Age: > 45 and < 65 years (1), Risk Factors: > or = 3 Risk factors for atherosclerotic disease (2), [Hypercholesterolemia] [Hypertension] [+ Family HX] [Obesity] Troponin: < or = 1 x Normal Limit (0). The patient was given aspirin in the Emergency Department. JESUS Risk Score: 1 - Three or more CAD risk factors, 1- Known CAD, 1 - ASA use in past 7 days, TOTAL SCORE = 3. Data reviewed: vital signs, nurses notes, lab test result(s), EKG, radiologic studies, plain films. Consideration of Admission/Observation Patient was admitted/placed on observation. Escalation of care including admission/observation considered. I considered the following discharge prescriptions or medication management in the emergency department Medications were administered in the Emergency Department. See MAR. Test considered but Not performed: CT: chest. 12/09 03:35 Order name: Basic Metabolic Panel; Complete Time: 04:30 jose daniel 12/09 03:35 Order name: CBC with Diff; Complete Time: 04:30 jose daniel 12/09 03:35 Order name: LFT's; Complete Time: 04:30 12/09 03:35 Order name: Magnesium; Complete Time: 04:30 12/09 03:35 Order name: NT PRO-BNP; Complete Time: 04:30 12/09 03:35 Order name: PT-INR; Complete Time: 04:30 12/09 03:35 Order name: Troponin HS; Complete Time: 04:30 12/09 03:35 Order name: XRAY Chest (1 view) 12/09 03:35 Order name: Lipase; Complete Time: 04:30 12/09 03:35 Order name: SARS RAPID; Complete Time: 05:04 12/09 04:03 Order name: Troponin High Sensitivity: 6am; Complete Time: 06:37 12/09 03:35 Order name: EKG; Complete Time: 03:36 12/09 03:35 Order name: Cardiac monitoring; Complete Time: 03:51 12/09 03:35 Order name: EKG - Nurse/Tech; Complete Time: 03:51 12/09 03:35 Order name: IV Saline Lock; Complete Time: 03:51 12/09 03:35 Order name: Labs collected and sent; Complete Time: 03:51 12/09 03:35 Order name: O2 Per Protocol; Complete Time: 03:51 12/09 03:35 Order name: O2 Sat Monitoring; Complete Time: 03:51 12/09 04:06 Order name: EK am; Complete Time: 04:07 12/09 04:06 Order name: EKG - Nurse/Tech; Complete Time: 04:33 [facility] EC:57 Rate is 67 beats/min. Rhythm is regular. QRS [place] is Normal. GA interval is normal. QRS jose daniel interval is normal. QT interval is normal. No Q waves. T waves are Normal. No ST changes noted. Clinical impression: Normal ECG and No evidence of ischemia. Interpreted by me. Reviewed by me. 06:00 Rate is 61 beats/min. Rhythm is regular. QRS [place] is Normal. GA interval is normal. QRS jose daniel interval is normal. QT interval is normal. No Q waves. T waves are Normal. Clinical impression: Normal ECG and No evidence of ischemia. Interpreted by me. Reviewed by me. Administered Medications: 03:56 Drug: Pepcid (famotidine) 20 mg Route: IVP; Site: right antecubital; aa9 06:01 Follow up: Response: No adverse reaction aa9 03:57 Drug: Aspirin Chewable Tablet 324 mg Route: PO; aa9 06:01 Follow up: Response: No adverse reaction aa9 04:08 Drug: Zithromax (azithromycin) 500 mg Route: PO; aa9 06:01 Follow up: Response: No adverse reaction aa9 05:05 Drug: Zofran (Ondansetron) 4 mg Route: IVP; Site: right antecubital; as6 06:01 Follow up: Response: No adverse reaction aa9 05:05 Drug: Ketorolac 30 mg Route: IVP; Site: right antecubital; as6 06:01 Follow up: Response: No adverse reaction aa9 Disposition Summary: 12/09/22 06:37 Discharge Ordered Location: Home jose daniel Problem: new jose daniel Symptoms: have improved jose daniel Condition: Stable jose daniel Diagnosis - Acute upper respiratory infection, unspecified jose daniel - Cough jose daniel - Obesity, unspecified jose daniel Followup: jose daniel - With: Private Physician - When: 2 - 3 days - Reason: Recheck today's complaints, Continuance of care, Re-evaluation by your physician Followup: jose daniel - With: - When: 2 - 3 days - Reason: Recheck today's complaints, Continuance of care, Re-evaluation by your physician Discharge Instructions: - Discharge Summary Sheet jose daniel - Obesity, Adult jose daniel - Upper Respiratory Infection, Adult jose daniel - Cool Mist Vaporizer jose daniel - Upper Respiratory Infection, Adult, [id number] jose daniel - Aspirin and Your Heart jose daniel - Cough, Adult jose daniel - Obesity, Adult, [id number] [facility] Forms: - Medication Reconciliation Form jose daniel - Thank You Letter jose daniel - Antibiotic Education jose daniel - Prescription Opioid Use [facility] Prescriptions: - Zithromax Z-Louis 250 mg Oral Tablet - take 1 tablet by ORAL route as directed for 5 days Day 1 - take two (2) tablets [facility] one time. Day 2, 3, 4 , 5 take one (1) tablet once daily.; 6 tablet; Refills: 0, Product Selection Permitted - Medrol (Louis) 4 mg Oral Tablets, Dose Pack - take 1 tablet by ORAL route as directed - follow package instructions; 1 jose daniel packet; Refills: 0, Product Selection Permitted - Diclofenac Sodium 75 mg Oral tablet,delayed release (DR/EC) - take 1 tablet by ORAL route 2 times per day; 20 tablet; Refills: 0, Product jose daniel Selection Permitted - Tylenol-Codeine #3 300 mg-30 mg Oral - take 2 tablet by ORAL route every 6 hours; 15 tablet; Refills: 0, Product jose daniel Selection Permitted Signatures: Dispatcher [employer] EDCipriano Herrera MD MD cha Ballard, Brenda, RN RN bb Loi Chau RN RN as6 Lulu Avila RN RN aa9 Corrections: (The following items were deleted from the chart) 04:07 03:56 COVID-19/FLU A+[id number] ordered. EDMS EDMS
[2022-12-09 07:39] VITALS: TEMP 98.6
[2022-12-09 07:45] VITALS: BP 151/88; O2SAT 95
--- NOTE | 2022-12-09 14:07 | RAD REPORT ---
EXAM DESCRIPTION: RAD - Chest Single View - 12/09/2022 3:58 am CLINICAL HISTORY: 56 years Male CHEST PAIN COMPARISON: None FINDINGS: Median sternotomy changes. Lung volumes adequate. Cardiac silhouette is mildly enlarged, unchanged. No pneumothorax. No large pleural effusion. No focal consolidation. Mild bilateral interstitial thickening. No acute bony finding. IMPRESSION: 1. Mild bilateral interstitial thickening. No focal consolidation. 2. Unchanged mildly enlarged cardiac silhouette. Electronically signed by: Vanessa Burciaga MD 12/09/2022 4:18 AM NURSE AIDE Due to temporary technical issues with the PACS/Fluency reporting system, reports are being signed by the in house radiologists without review as a courtesy to insure prompt reporting. The interpreting radiologist is fully responsible for the content of the report.
--- NOTE | 2022-12-09 16:53 | EKG ---
Test Date: 2022-12-09 Test Time: 05:59:21 Curator Of Photography And Prints: AGUSTINA MEASUREMENT RESULTS: Intervals: Rate: 61 MN: 162 QRSD: 92 QT: 436 QTc: 438 [place]: P: 57 MN: 162 QRS: 55 T: 50 INTERPRETIVE STATEMENTS: Normal sinus rhythm Normal ECG Compared to ECG 12/09/2022 03:44:53 No significant changes Electronically Signed On 12-09-22 16:53:11 FIRE PREVENTION RESEARCH ENGINEER by Esteban Liang
--- NOTE | 2022-12-09 16:54 | EKG ---
Test Date: 2022-12-09 Test Time: 03:44:53 Household Appliances Salesperson: AGUSTINA MEASUREMENT RESULTS: Intervals: Rate: 67 NE: 172 QRSD: 86 QT: 420 QTc: 443 [place]: P: 14 NE: 172 QRS: 30 T: 36 INTERPRETIVE STATEMENTS: Normal sinus rhythm Normal ECG Compared to ECG 09/04/2021 14:51:34 Myocardial infarct finding no longer present Electronically Signed On 12-09-22 16:53:12 PATENT COUNSEL by Esteban Liang
== END 2022-12-09 07:07 | disposition home or self-care (01) ==
LOC: ER 03:24
DX: J06.9 Acute upper respiratory infection, unspecified (principal); R07.89 Other chest pain; I10 Essential (primary) hypertension; Z20.822 Contact with and (suspected) exposure to COVID-19; Z87.442 Personal history of urinary calculi; Z79.82 Long term (current) use of aspirin; Z95.1 Presence of aortocoronary bypass graft
CPT/HCPCS: 93005 ×2; 85025; 80048; 36415; 83735; 85610; 80076; 84484 ×2; 83690; 83880; 71045; 87811; Q0144; J2405

== ENCOUNTER 2023-06-04 18:25 | Emergency (ER) | payer OTHER ==
--- OUTSIDE RECORDS SUMMARY | 2023-06-04 18:29 | XMS REPORT | Continuity of Care Document ---
:1965 Author Organization [facility] t Address [address] [facility] [address] [place] [address] Care Team Providers Name Role Phone AVRIL CULVER Attending Clinician Unavailable LORA MALONEY Attending Clinician Unavailable Payers Payer Name Policy Type Policy Number Effective Date Expiration Date S lisa VIKTORIA PEREZ DUAL 7 [id number] 2023 COMPLETE CAP(HMO 00:00:00 D-SNP OA) VIKTORIA PEREZ DUAL 2 [id number] 2023 00:00:00 MEDICAID[facility] 6 [id number] 2023 00:00:00 Problems This patient has no known problems. Allergies, Adverse Reactions, Alerts This patient has no known allergies or adverse reactions. Medications This patient has no known medications. Procedures This patient has no known procedures. Encounters Start End Encounter Admission Attending Care Care Encounter Source Date/Time Date/Time Type Type Clinicians Facility Department ID 2023-05-28 2023-05-28 Outpatient SHARIFA CULVER [id number] [place] 16:00:00 16:00:00 AVRIL black 2023-05-13 2023-05-13 Outpatient SHARIFA MALONEY [id number] [place] 13:40:00 13:40:00 LORA black Results This patient has no known results.
--- NOTE | 2023-06-04 18:56 | RAD REPORT ---
EXAM DESCRIPTION: RAD - Chest Single View - 06/04/2023 6:45 pm CLINICAL HISTORY: CHEST PAIN COMPARISON: Chest Single View dated 12/09/2022; Chest Single View dated 09/04/2021; Chest Single View dated 04/12/2018; Chest Single View dated 07/26/2017 FINDINGS: Lines: None. Lungs: No evidence of edema or pneumonia. Pleural: No significant pleural effusions or pneumothorax. Cardiac: Similar enlarged cardiopericardial silhouette. Mediastinum: Within normal limits. Bones: No acute fractures. Sternotomy. Other: None IMPRESSION: No acute cardiopulmonary disease.
[2023-06-04 18:57] LABS: Absolute Lymphocytes (CBC) 2.1 K/uL (0.7-4.9); Hematocrit 37.3 % (39.6-49.0); Lymphocytes % 25.5 % (15.3-44.8); MCV 92.1 fL (80-100); MPV 8.7 fL (7.6-11.3); RBC Red Blood Cell Count 4.05 M/uL (4.33-5.43)
[2023-06-04 19:28] LABS: Albumin 3.4 g/dL (3.4-5.0); Bilirubin Direct 0.2 mg/dL (0-0.2); Bilirubin Indirect, Calculated 0.5 mg/dL (0.2-0.8); Bilirubin Total 0.7 mg/dL (0.2-1.0); Magnesium 2.1 mg/dL (1.6-2.4); Protein, Total 6.7 g/dL (6.4-8.2); Troponin High Sensitivity 5.4 pg/mL (<58.9)
--- NOTE | 2023-06-04 20:54 | EDPHYS ---
Physician Documentation [facility] Name: Ramu Bhat Age: 57 yrs Sex: Male : 1965 Arrival Date: 06/04/2023 Time: 18:25 Bed 4 Private MD: ED Physician Kelli De Jesus HPI: 06/04 18:37 This 57 yrs old Male presents to ER via Unassigned with complaints of chest pain/heart sp3 burn. 18:37 57-year-old male with a history of coronary artery disease, status post coronary artery sp3 bypass in 2019, hypertension presents to the ED with chief complaint "heartburn" after eating tacos that his family may. Patient states he started getting the chest pain and heartburn and then took Tums which has relieved it. Before it was fully relieved, he activated EMS and they arrived to find patient with normal vital signs and no EKG changes as reported on their study. In route to the hospital, his symptoms significantly improved. He also received 324 mg of aspirin. He denies headache, neck pain, shortness of breath, back pain, abdominal pain, nausea, vomiting, diarrhea, and now chest pain as well is resolved. At this point he does not feel like this is cardiac related however he is amenable to staying get assessed.. Historical: - Allergies: 18:39 No Known Drug Allergies; cm10 - PMHx: 18:39 coronary atherosclerosis; Hypertension; Kidney stones; STEMI; cm10 - PSHx: 18:39 Cholecystectomy; triple bypass; cm10 - Immunization history:: Adult Immunizations unknown. - Social history:: Smoking status: unknown. ROS: 18:39 Constitutional: Negative for fever, chills, and weight loss, Eyes: Negative for injury, sp3 pain, redness, and discharge, ENT: Negative for injury, pain, and discharge, Neck: Negative for injury, pain, and swelling, Respiratory: Negative for shortness of breath, cough, wheezing, and pleuritic chest pain, Back: Negative for injury and pain, MS/Extremity: Negative for injury and deformity, Skin: Negative for injury, rash, and discoloration, Neuro: Negative for headache, weakness, numbness, tingling, and seizure, Psych: Negative for depression, anxiety, suicide ideation, homicidal ideation, and hallucinations, Allergy/Immunology: Negative for hives, rash, and allergies, Endocrine: Negative for neck swelling, polydipsia, polyuria, polyphagia, and marked weight changes, Hematologic/Lymphatic: Negative for swollen nodes, abnormal bleeding, and unusual bruising. 18:39 All other systems are negative. Exam: 18:39 Constitutional: This is a well developed, well nourished patient who is awake, alert, sp3 and in no acute distress. Head/Face: Normocephalic, atraumatic. Eyes: Pupils equal round and reactive to light, extra-ocular motions intact. Lids and lashes normal. Conjunctiva and sclera are non-icteric and not injected. Cornea within normal limits. Periorbital areas with no swelling, redness, or edema. Neck: Trachea midline, no thyromegaly or masses palpated, and no cervical lymphadenopathy. Supple, full range of motion without nuchal rigidity, or vertebral point tenderness. No Meningismus. Chest/axilla: Normal chest wall appearance and motion. Nontender with no deformity. No lesions are appreciated. Cardiovascular: Regular rate and rhythm with a normal S1 and S2. No gallops, murmurs, or rubs. Normal PMI, no JVD. No pulse deficits. Respiratory: Lungs have equal breath sounds bilaterally, clear to auscultation and percussion. No rales, rhonchi or wheezes noted. No increased work of breathing, no retractions or nasal flaring. Abdomen/GI: Soft, non-tender, with normal bowel sounds. No distension or tympany. No guarding or rebound. No evidence of tenderness throughout. Back: No spinal tenderness. No costovertebral tenderness. Full range of motion. Skin: Warm, dry with normal turgor. Normal color with no rashes, no lesions, and no evidence of cellulitis. MS/ Extremity: Pulses equal, no cyanosis. Neurovascular intact. Full, normal range of motion. Neuro: Awake and alert, GCS 15, oriented to person, place, time, and situation. Cranial nerves II-XII grossly intact. Motor strength 5/5 in all extremities. Sensory grossly intact. Cerebellar exam normal. Normal gait. Psych: Awake, alert, with orientation to person, place and time. Behavior, mood, and affect are within normal limits. 20:27 ECG was reviewed by the Attending Physician. EKG demonstrates normal sinus rhythm at 68 sp3 bpm with normal intervals, normal QRS, normal axis, normal ST/T-segment's without evidence of acute ischemia. Vital Signs: 18:36 BP 135 / 79; Pulse 67; Resp 18; Pulse Ox 98% on R/A; Weight 120.2 kg; Height 5 ft. 11 cm10 in. ; Pain 2/10; 19:30 BP 128 / 66; Pulse 73; Resp 16; Pulse Ox 99% on R/A; jb4 21:05 BP 127 / 82; Pulse 62; Resp 18; Pulse Ox 98% on R/A; jb4 18:36 Body Mass Index 36.96 (120.20 kg, 180.34 cm) cm10 18:36 Pain Scale: Adult cm10 MDM: 18:28 Patient medically screened. sp3 18:39 Data reviewed: vital signs, nurses notes, EMS record, old medical records, lab test sp3 result(s), EKG, radiologic studies. ED course: 57-year-old male with prior cardiac history now presents with a relieved/resolved chest pain and heartburn complaints. To consider gastritis versus esophageal spasm versus GERD versus acute coronary syndrome. I am not highly suspicious for vascular pathology including aortic aneurysm or dissection, pulmonary pathology including pneumonia, pneumothorax, or sepsis/shock. Will assess with cardiac work-up and likely repeat troponin 2 hours later and discharge patient home per his request. I have offered 23-hour observation admission but patient does not want to go that route as of right now.. 20:29 ED course: Repeat troponin is pending and should be done in 15 minutes per lab. Patient sp3 is anxious about leaving and going home. He believes this was purely the tacos and does not feel like this is his heart related matter. If second troponin is negative, we will safely discharge him he knows to return at any time if he wants to be further evaluated or if his pain returns. Patient is completely pain-free and feels at baseline.. 20:52 ED course: Second troponin is negative. We will safely discharge patient home at this sp3 time. He knows he may return at anytime if he changes his mind or if this gets worse.. 06/04 18:29 Order name: Basic Metabolic Panel; Complete Time: 19:46 sp3 06/04 18:29 Order name: CBC with Diff; Complete Time: 19:07 sp3 06/04 18:29 Order name: LFT's; Complete Time: 19:46 sp3 06/04 18:29 Order name: Magnesium; Complete Time: 19:46 sp3 06/04 18:29 Order name: Troponin HS; Complete Time: 19:46 sp3 06/04 19:47 Order name: Troponin High Sensitivity: Draw two hours after first; Complete Time: 20:52 sp3 06/04 18:29 Order name: XRAY Chest (1 view); Complete Time: 19:07 sp3 06/04 18:29 Order name: EKG; Complete Time: 18:29 sp3 06/04 18:29 Order name: Cardiac monitoring; Complete Time: 19:03 sp3 06/04 18:29 Order name: EKG - Nurse/Tech; Complete Time: 19:03 sp3 06/04 18:29 Order name: IV Saline Lock; Complete Time: 19:03 sp3 06/04 18:29 Order name: Labs collected and sent; Complete Time: 19:03 sp3 06/04 18:29 Order name: O2 Per Protocol; Complete Time: 19:03 sp3 06/04 18:29 Order name: O2 Sat Monitoring; Complete Time: 19:03 sp3 Administered Medications: No medications were administered Disposition Summary: 06/04/23 20:54 Discharge Ordered Location: Home sp3 Condition: Stable sp3 Diagnosis - Gastritis, GERD, chest pain resolved sp3 Followup: sp3 - With: Private Physician - When: Upon discharge from the Emergency Department - Reason: Recheck today's complaints Discharge Instructions: - Discharge Summary Sheet sp3 - Nonspecific Chest Pain, Adult sp3 Forms: - Medication Reconciliation Form sp3 - Thank You Letter sp3 - Antibiotic Education sp3 - Prescription Opioid Use sp3 - Patient Portal Instructions sp3 Signatures: Dispatcher [employer] Kelli Weston MD MD sp3 Hedy Sánchez RN RN cm10
--- NOTE | 2023-06-04 20:54 | ER ---
Nurse's Notes [facility] Name: Ramu Bhat Age: 57 yrs Sex: Male : 1965 Arrival Date: 06/04/2023 Time: 18:25 Bed 4 Private MD: Diagnosis: Gastritis, GERD, chest pain resolved Presentation: 06/04 18:36 Chief complaint: EMS states: Pt complaining of chest pain to the center of his chest cm10 onset 1hr after eating tacos. Pt received a total of ASA 324mg and 1 tums and states that he feels much better. Coronavirus screen: Vaccine status: Patient reports receiving the 2nd dose of the covid vaccine. Ebola Screen: Patient denies travel to an Ebola-affected area in the 21 days before illness onset. No symptoms or risks identified at this time. Initial Sepsis Screen: Does the patient meet any 2 criteria? No. Patient's initial sepsis screen is negative. Does the patient have a suspected source of infection? No. Patient's initial sepsis screen is negative. Risk Assessment: Do you want to hurt yourself or someone else? Patient reports no desire to harm self or others. Onset of symptoms was June 04, 2023. 18:36 Method Of Arrival: EMS: [facility] cm10 18:36 Acuity: WILLIAM 2 cm10 18:40 Care prior to arrival: Medication(s) given: ASA, 81 mg, x 4. cm10 Triage Assessment: 18:39 General: Appears in no apparent distress. comfortable, Behavior is calm, cooperative. cm10 Pain: Complains of pain in chest Pain does not radiate. Pain currently is 2 out of 10 on a pain scale. Quality of pain is described as sharp, Pain began suddenly, Alleviated by medications. Neuro: No deficits noted. Level of Consciousness is awake, alert, obeys commands, Oriented to person, place, time, situation. Respiratory: No deficits noted. Airway is patent Respiratory effort is even, unlabored, Respiratory pattern is regular, symmetrical. Historical: - Allergies: 18:39 No Known Drug Allergies; cm10 - PMHx: 18:39 coronary atherosclerosis; Hypertension; Kidney stones; STEMI; cm10 - PSHx: 18:39 Cholecystectomy; triple bypass; cm10 - Immunization history:: Adult Immunizations unknown. - Social history:: Smoking status: unknown. Screenin:41 [facility] ED Fall Risk Assessment (Adult) History of falling in the last 3 months, cm10 including since admission No falls in past 3 months (0 pts) Confusion or Disorientation No (0 pts) Intoxicated or Sedated No (0 pts) Impaired Gait No (0 pts) Mobility Assist Device Used No (0 pt) Altered Elimination No (0 pt) Score/Fall Risk Level 0 - 2 = Low Risk Oriented to surroundings, Maintained a safe environment, Hourly rounding (assess needs \T\ fall precautionary measures) done. Abuse screen: Denies threats or abuse. Denies injuries from another. Nutritional screening: No deficits noted. Tuberculosis screening: No symptoms or risk factors identified. Assessment: 18:41 Reassessment: See triage assessment. cm10 19:15 Reassessment: Patient appears in no apparent distress at this time. Patient and/or jb4 family updated on plan of care and expected duration. Pain level reassessed. Patient is alert, oriented x 3, equal unlabored respirations, skin warm/dry/pink. 21:05 Reassessment: Patient appears in no apparent distress at this time. Patient and/or jb4 family updated on plan of care and expected duration. Pain level reassessed. Patient is alert, oriented x 3, equal unlabored respirations, skin warm/dry/pink. Vital Signs: 18:36 BP 135 / 79; Pulse 67; Resp 18; Pulse Ox 98% on R/A; Weight 120.2 kg; Height 5 ft. 11 cm10 in. ; Pain 2/10; 19:30 BP 128 / 66; Pulse 73; Resp 16; Pulse Ox 99% on R/A; jb4 21:05 BP 127 / 82; Pulse 62; Resp 18; Pulse Ox 98% on R/A; jb4 18:36 Body Mass Index 36.96 (120.20 kg, 180.34 cm) cm10 18:36 Pain Scale: Adult cm10 ED Course: 18:28 Patient arrived in ED. em1 18:28 Kelli De Jesus MD is Attending Physician. sp3 18:39 Triage completed. cm10 18:40 Arm band placed on Patient placed in a hallway bed, on a stretcher. cm10 18:41 Patient has correct armband on for positive identification. Bed in low position. Call cm10 light in reach. Side rails up X 1. 18:47 XRAY Chest (1 view) In Process Unspecified. EDMS 19:03 Inserted saline lock: 20 gauge in right antecubital area, using aseptic technique. cm10 Blood collected. 19:45 Faustino Rocha, RN is Primary Nurse. jb4 21:05 No provider procedures requiring assistance completed. IV discontinued, intact, jb4 bleeding controlled, No redness/swelling at site. Pressure dressing applied. Administered Medications: No medications were administered Medication: 18:41 VIS not applicable for this client. cm10 Outcome: 20:54 Discharge ordered by . [email or web address] 21:05 Discharged to home ambulatory, with friend. jb4 21:05 Condition: stable 21:05 Discharge instructions given to patient, Instructed on discharge instructions, follow up and referral plans. Demonstrated understanding of instructions, follow-up care. 21:06 Patient left the ED. jb4 Signatures: Dispatcher [employer] EDIL Marc Sánchez em1 Faustino Rocha, RN RN jb4 Kelli De Jesus MD MD sp3 Hedy Sánchez RN RN cm10
[2023-06-04 21:54] VITALS: BP 127/82; O2SAT 98
--- NOTE | 2023-06-05 13:25 | EKG ---
Test Date: 2023-06-04 Test Time: 19:00:18 [employer] Offbearer: RASHID MEASUREMENT RESULTS: Intervals: Rate: 68 OH: 152 QRSD: 86 QT: 406 QTc: 431 [place]: P: 47 OH: 152 QRS: 62 T: 20 INTERPRETIVE STATEMENTS: Normal sinus rhythm Normal ECG Compared to ECG 12/09/2022 05:59:21 No significant changes Electronically Signed On 06-05-23 13:24:10 CDT by Esteban Liang
== END 2023-06-04 21:06 | disposition home or self-care (01) ==
LOC: ER 18:25
DX: K21.9 Gastro-esophageal reflux disease without esophagitis (principal); K29.70 Gastritis, unspecified, without bleeding; I10 Essential (primary) hypertension; Z95.1 Presence of aortocoronary bypass graft; Z87.442 Personal history of urinary calculi
CPT/HCPCS: 36415; 71045; 80048; 80076; 83735; 84484; 85025; 93005; 99284

== ENCOUNTER 2023-08-24 21:34 | Observation (INO) | payer OTHER ==
--- OUTSIDE RECORDS SUMMARY | 2023-08-24 22:09 | XMS REPORT | Continuity of Care Document ---
:1965 Author Organization [facility] t Address [address] [place] [address] Care Team Providers Name Role Phone AVRIL CULVER Attending Clinician Unavailable LORA MALONEY Attending Clinician Unavailable Payers Payer Name Policy Type Policy Number Effective Date Expiration Date S ource VIKTORIA PEREZ DUAL 7 [id number] 2023 COMPLETE CAP(HMO 00:00:00 D-SNP OA) VIKTORIA PEREZ DUAL 2 [id number] 2023 00:00:00 MEDICAID-[facility] 6 [id number] 2023 00:00:00 Problems This patient has no known problems. Allergies, Adverse Reactions, Alerts This patient has no known allergies or adverse reactions. Medications This patient has no known medications. Procedures This patient has no known procedures. Encounters Start End Encounter Admission Attending Care Care Encounter Source Date/Time Date/Time Type Type Clinicians Facility Department ID 2023-05-28 2023-05-28 Outpatient SHARIFA CULVER [id number] Sharifa 16:00:00 16:00:00 AVRIL black 2023-05-13 2023-05-13 Outpatient SHARIFA MALONEY [id number] Sharifa 13:40:00 13:40:00 LORA black Results This patient has no known results.
[2023-08-24] MEDS ORDERED: ONDANSETRON 4 MG/2 ML VIAL ONE (22:21)
[2023-08-24] MEDS ORDERED: NA CHLORIDE 0.9% 1,000 ML ONE (22:21)
[2023-08-24] MEDS ORDERED: FAMOTIDINE 20 MG/2 ML VIAL IV ONE (22:21)
[2023-08-24 22:34] LABS: Absolute Lymphocytes (CBC) 2.3 K/uL (0.7-4.9); Hematocrit 41.5 % (39.6-49.0); Lymphocytes % 24.9 % (15.3-44.8); MCV 90.9 fL (80-100); MPV 8.8 fL (7.6-11.3); Platelets 276 thou/uL (152-406); RBC Red Blood Cell Count 4.56 M/uL (4.33-5.43)
[2023-08-24 22:51] LABS: Potassium 3.2 mEq/L (3.5-5.1); Troponin High Sensitivity 8.8 pg/mL (<58.9)
[2023-08-24] MEDS ORDERED: MORPHINE 4 MG/ML SYR ONE (23:52)
[2023-08-25] MEDS ORDERED: PANTOPRAZOLE 40 MG INJ ONE ×2 (00:16→08:36)
[2023-08-25] MEDS ORDERED: ONDANSETRON 4 MG/2 ML VIAL ONE ×3 (00:16→07:27)
--- NOTE | 2023-08-25 02:31 | EDPHYS ---
Physician Documentation [facility] Name: Ramu Bhat Age: 57 yrs Sex: Male : 1965 Arrival Date: 08/24/2023 Time: 21:34 Bed 15 Private MD: ED Physician Cipriano Pena HPI: 08/24 23:00 This 57 yrs old Male presents to ER via Ambulatory with complaints of Chest Pain, cp Shortness Of Breath. 23:00 The patient or guardian reports chest pain that is located primarily in the substernal cp area, epigastric area. 23:00 Onset: today. The pain does not radiate. Associated signs and symptoms: Pertinent cp positives: nausea, shortness of breath, vomiting. The chest pain is described as burning. Duration: The patient or guardian reports a single episode, that is still ongoing. Severity of pain: in the emergency department the pain is unchanged despite home interventions. Historical: - Allergies: 21:51 No Known Allergies; jj7 - PMHx: 21:51 coronary atherosclerosis; Hypertension; Kidney stones; STEMI; jj7 - PSHx: 21:51 Cholecystectomy; triple bypass; jj7 - Immunization history:: Adult Immunizations up to date, Client reports receiving the 2nd dose of the Covid vaccine. - Social history:: Smoking status: Patient denies any tobacco usage or history of. Patient/guardian denies using alcohol, street drugs. ROS: 23:05 Constitutional: Negative for body aches, chills, fever, poor PO intake, cp 23:05 Eyes: Negative for injury, pain, redness, and discharge, cp 23:05 ENT: Negative for drainage from ear(s), ear pain, sore throat, difficulty swallowing, difficulty handling secretions, 23:05 Cardiovascular: Positive for chest pain, 23:05 Respiratory: Negative for cough, wheezing, 23:05 Abdomen/GI: Positive for nausea, vomiting, Negative for abdominal pain, diarrhea, constipation, 23:05 Back: Negative for radiated pain, 23:05 Neuro: Negative for altered mental status, dizziness, headache, syncope, weakness, 23:05 All other systems are negative, Exam: 22:17 ECG was reviewed by the Attending Physician. cp 23:10 Constitutional: The patient appears in no acute distress, alert, non-diaphoretic, cp non-toxic, well developed, well nourished, obese, uncomfortable, 23:10 Head/Face: Normocephalic, atraumatic. cp 23:10 Eyes: Periorbital structures: appear normal, Conjunctiva: normal, no exudate, no injection, Sclera: no appreciated abnormality, Lids and lashes: appear normal, bilaterally, 23:10 ENT: External ear(s): are unremarkable, Nose: is normal, Mouth: Lips: moist, Oral mucosa: pink and intact, moist, Posterior pharynx: is normal, airway is patent, no erythema, no exudate, 23:10 Neck: ROM/movement: is normal, is supple, without pain, no range of motions limitations, 23:10 Chest/axilla: Inspection: normal, Palpation: is normal, no crepitus, no tenderness, 23:10 Cardiovascular: Rate: normal, Rhythm: regular, Edema: is not appreciated, JVD: is not appreciated, 23:10 Respiratory: the patient does not display signs of respiratory distress, Respirations: normal, no use of accessory muscles, no retractions, labored breathing, is not present, Breath sounds: are clear throughout, no decreased breath sounds, no stridor, no wheezing, 23:10 Abdomen/GI: Inspection: obese Bowel sounds: active, all quadrants, Palpation: soft, in all quadrants, mild abdominal tenderness, in the epigastric area, rebound tenderness, is not appreciated, involuntary guarding, is not appreciated, 23:10 Back: pain, is absent, ROM is normal, 23:10 Neuro: Orientation: to person, place \T\ time. Mentation: is normal, Motor: moves all fours, strength is normal, Sensation: is normal, Vital Signs: 21:45 BP 162 / 64; Pulse 73; Resp 19; Temp 98.7; Pulse Ox 97% ; Weight 117.93 kg; Height 5 jj7 ft. 9 in. ; Pain 05/18; 08/25 00:01 BP 156 / 84; Pulse 72; Resp 18; Pulse Ox 99% on R/A; Pain /10; hb 08/24 21:45 Body Mass Index 38.39 (117.93 kg, 175.26 cm) [facility] 08/24 21:45 Pain Scale: Adult [facility] 08/25 00:01 Pain Scale: Adult hb MDM: 08/24 22:39 Patient medically screened. 08/25 00:00 Differential diagnosis: abnormal EKG, acute myocardial infarction, cholecystitis, cp Cholelithiasis esophagitis, pancreatitis, peptic ulcer disease, pericarditis, pleurisy, pneumonia, pneumothorax, stable angina, thoracic aortic disection, unstable angina. 02:35 Data reviewed: vital signs, nurses notes, lab test result(s), EKG, radiologic studies, CT scan, plain films, and as a result, I will admit patient. 02:35 I considered the following discharge prescriptions or medication management in the emergency department Medications were administered in the Emergency Department. See MAR. Independent interpretation of the following test(s) in the Emergency Department EKG: See my EKG interpretation above. Care significantly affected by the following chronic conditions: Hypertension, Obesity. 08/24 22:04 Order name: Basic Metabolic Panel; Complete Time: 00:37 [facility] 08/25 00:44 Interpretation: Normal except: K 3.2; GLUC 127; GFR 88. 08/24 22:04 Order name: CBC with Diff; Complete Time: 00:01 [facility] 08/25 00:44 Interpretation: Reviewed. 08/24 22:04 Order name: Troponin HS; Complete Time: 00:37 [facility] 08/25 00:45 Interpretation: Reviewed. 08/25 00:08 Order name: Lipase; Complete Time: 00:37 [facility] 08/25 07:55 Order name: CBC with Automated Diff [facility] 08/25 08:31 Order name: Basic Metabolic Panel [facility] 08/25 08:31 Order name: Troponin High Sensitivity [facility] 08/25 08:31 Order name: Magnesium [facility] 08/25 00:04 Order name: CT Aorta for Dissection 08/24 22:04 Order name: EKG; Complete Time: 22:05 [facility] 08/24 22:04 Order name: EKG - Nurse/Tech; Complete Time: 22:12 [facility] 08/24 22:04 Order name: IV Saline Lock; Complete Time: 22:04 [facility] 08/24 22:04 Order name: Labs collected and sent; Complete Time: 22:04 [facility] 08/24 22:04 Order name: O2 Per Protocol; Complete Time: 23:38 [facility] 08/24 22:04 Order name: O2 Sat Monitoring; Complete Time: 23:38 jj7 EC/16 22: Rate is 71 beats/min. Rhythm is regular. NE interval is normal. QRS interval is normal. cp QT interval is normal. T waves are Inverted in lead aVR. Interpreted by me. Reviewed by me. Administered Medications: 22:16 Drug: Ondansetron IVP 4 mg IVP once; over 2 minutes Route: IVP; Site: left antecubital; jj7 08/25 00:02 Follow up: Response: No adverse reaction hb 08/24 22:16 Drug: NS 0.9% IV 1000 ml IV at 1 bolus Per protocol; 1000 mL bolus Route: IV; Rate: 1 jj7 bolus; Site: left antecubital; 22:17 Drug: Famotidine IVP 20 mg IVP once; dilute with 10 mL 0.9% NaCl; give over 2 minutes jj7 Route: IVP; Site: left antecubital; 08/25 00:02 Follow up: Response: No adverse reaction hb 00:01 Drug: morphine IVP or IV 4 mg IVP once over 4 mins Route: IVP; Infused Over: 4 mins; hb Site: left antecubital; 00:10 Drug: Ondansetron IVP 4 mg IVP once; over 2 minutes Route: IVP; Site: left antecubital; hb 00:10 Drug: Pantoprazole IVP 40 mg IVP once Route: IVP; Site: left antecubital; hb 00:11 Drug: NS 0.9% IV 1000 ml IV at 250 ml/hr Per protocol; 1000 mL bolus Route: IV; Rate: hb 250 ml/hr; Site: left antecubital; 03:00 Drug: morphine IVP or IV 4 mg IVP once over 4 mins Route: IVP; Infused Over: 4 mins; bp Site: right antecubital; 03:15 Drug: GI Cocktail without - (Maalox PO 30 ml, Lidocaine Mucous Membrane 2 % 15 bp ml) PO once Route: PO; 03:15 Drug: Dulcolax PO Delayed Release Tablet 5 mg PO once Route: PO; bp Disposition Summary: 08/25/23 02:30 Hospitalization Ordered Notes: Hospitalization Status: Observation cp Provider: Alondra Longoria cp Condition: Stable cp Problem: new cp Symptoms: have improved cp Bed/Room Type: Standard cp Location: Telemetry/MedSurg (observation)(08/25/23 11:20) bd Room Assignment: 206(08/25/23 11:20) bd Diagnosis - Chest pain, unspecified cp Forms: - Medication Reconciliation Form cp - SBAR form cp - Leadership Thank You Letter cp Signatures: Dispatcher [employer] EDMS augustinMaribel botello bd Cayla Arevalo RN RN Cipriano Barcenas PA PA cp Garcia, Cindy, RN RN cg Mary Laboy RN RN hb Peltier, Brian, RN RN bp Johnson, Juwairiyah RN RN jj7 Corrections: (The following items were deleted from the chart) 00:06 00:03 LIPASE+C.LAB.BRZ ordered. EDMS EDMS 03:07 02:30 Telemetry/MedSurg (observation) cp cg 03:07 02:30 cp cg 11:20 03:07 [facility] ER HOLD cg bd 11:20 03:07 ERHOLD- cg bd 08/26 03:28 08/24 23:05 Abdomen/GI: Negative for abdominal pain, vomiting, diarrhea, constipation, cp cp
--- NOTE | 2023-08-25 02:31 | ER ---
Nurse's Notes [facility] Name: Ramu Bhat Age: 57 yrs Sex: Male : 1965 Arrival Date: 08/24/2023 Time: 21:34 Bed 15 Private MD: Diagnosis: Chest pain, unspecified Presentation: 08/24 21:45 Chief complaint: Patient states: INDIGESTION. STATES HE ATE SOME SHRIMP COCKTAIL SAUCE j7 TODAY AND STARTED BELCHING UNTIL HE STARTED VOMITING. STATES HE HAS BEEN HERE BEFORE FOR THE SAME THING. THINK HE HAS ACID REFLEX. Coronavirus screen: At this time, the client does not indicate any symptoms associated with coronavirus-19. Ebola Screen: No symptoms or risks identified at this time. Initial Sepsis Screen: Does the patient meet any 2 criteria? No. Patient's initial sepsis screen is negative. Does the patient have a suspected source of infection? No. Patient's initial sepsis screen is negative. Risk Assessment: Do you want to hurt yourself or someone else? Patient reports no desire to harm self or others. Onset of symptoms. 21:45 Method Of Arrival: Ambulatory [facility] 21:45 Acuity: WILLIAM 3 jj7 Triage Assessment: 21:51 General: Appears in no apparent distress. uncomfortable, Behavior is calm, cooperative, jj7 appropriate for age. Pain: Complains of pain in chest. Cardiovascular: Reports chest pain, vomiting. Historical: - Allergies: 21:51 No Known Allergies; jj7 - PMHx: 21:51 coronary atherosclerosis; Hypertension; Kidney stones; STEMI; jj7 - PSHx: 21:51 Cholecystectomy; triple bypass; jj7 - Immunization history:: Adult Immunizations up to date, Client reports receiving the 2nd dose of the Covid vaccine. - Social history:: Smoking status: Patient denies any tobacco usage or history of. Patient/guardian denies using alcohol, street drugs. Screenin:01 [facility] ED Fall Risk Assessment (Adult) History of falling in the last 3 months, jj7 including since admission No falls in past 3 months (0 pts) Confusion or Disorientation No (0 pts) Intoxicated or Sedated No (0 pts) Impaired Gait No (0 pts) Mobility Assist Device Used No (0 pt) Altered Elimination No (0 pt) Score/Fall Risk Level 0 - 2 = Low Risk Oriented to surroundings, Maintained a safe environment. Abuse screen: Denies threats or abuse. Nutritional screening: No deficits noted. Tuberculosis screening: No symptoms or risk factors identified. Assessment: 22:01 Reassessment: SEE TRIAGE. jj7 23:45 Reassessment: Patient appears in no apparent distress at this time. Patient and/or hb family updated on plan of care and expected duration. Pain level reassessed. Patient is alert, oriented x 3, equal unlabored respirations, skin warm/dry/pink. Vital Signs: 21:45 BP 162 / 64; Pulse 73; Resp 19; Temp 98.7; Pulse Ox 97% ; Weight 117.93 kg; Height 5 jj7 ft. 9 in. ; Pain 7/10; 08/25 00:01 BP 156 / 84; Pulse 72; Resp 18; Pulse Ox 99% on R/A; Pain 9/10; hb 08/24 21:45 Body Mass Index 38.39 (117.93 kg, 175.26 cm) j7 08/24 21:45 Pain Scale: Adult j7 08/25 00:01 Pain Scale: Adult ED Course: 08/24 21:39 Patient arrived in ED. gm2 21:51 Triage completed. jj7 21:51 Arm band placed on right wrist. jj7 22:01 Patient has correct armband on for positive identification. jj7 22:01 Inserted saline lock: 20 gauge in left antecubital area, using aseptic technique. Blood jj7 collected. 22:17 Basic Metabolic Panel Sent. jj7 22:17 CBC with Diff Sent. jj7 22:17 Troponin HS Sent. jj7 22:39 Cipriano Mesa PA is PHCP. cp 22:39 Cipriano Pena MD is Attending Physician. cp 23:15 Mary Laboy, RN is Primary Nurse. 08/25 00:50 CT Aorta for Dissection In Process Unspecified. EDMS 02:30 Alondra Longoria FNP is Hospitalizing Provider. cp 03:07 Primary Nurse role handed off by Mary Laboy, RN bp 03:07 Luan Bradford, RN is Primary Nurse. bp 06:43 No provider procedures requiring assistance completed. Patient admitted, IV remains in bp place. Patient maintains SpO2 saturation greater than 95% on room air. 11:56 Provided Education on: na. Client placed on continuous cardiac and pulse oximetry ko1 monitoring. NIBP monitoring applied. highway maintenance supervisor on. Administered Medications: 08/24 22:16 Drug: Ondansetron IVP 4 mg IVP once; over 2 minutes Route: IVP; Site: left antecubital; jj7 08/25 00:02 Follow up: Response: No adverse reaction hb 08/24 22:16 Drug: NS 0.9% IV 1000 ml IV at 1 bolus Per protocol; 1000 mL bolus Route: IV; Rate: 1 jj7 bolus; Site: left antecubital; 22:17 Drug: Famotidine IVP 20 mg IVP once; dilute with 10 mL 0.9% NaCl; give over 2 minutes jj7 Route: IVP; Site: left antecubital; 08/25 00:02 Follow up: Response: No adverse reaction hb 00:01 Drug: morphine IVP or IV 4 mg IVP once over 4 mins Route: IVP; Infused Over: 4 mins; hb Site: left antecubital; 00:10 Drug: Ondansetron IVP 4 mg IVP once; over 2 minutes Route: IVP; Site: left antecubital; hb 00:10 Drug: Pantoprazole IVP 40 mg IVP once Route: IVP; Site: left antecubital; hb 00:11 Drug: NS 0.9% IV 1000 ml IV at 250 ml/hr Per protocol; 1000 mL bolus Route: IV; Rate: hb 250 ml/hr; Site: left antecubital; 03:00 Drug: morphine IVP or IV 4 mg IVP once over 4 mins Route: IVP; Infused Over: 4 mins; bp Site: right antecubital; 03:15 Drug: GI Cocktail without - (Maalox PO 30 ml, Lidocaine Mucous Membrane 2 % 15 bp ml) PO once Route: PO; 03:15 Drug: Dulcolax PO Delayed Release Tablet 5 mg PO once Route: PO; bp Medication: 08/24 22:01 VIS not applicable for this client. jj7 Outcome: 08/25 02:30 Decision to Hospitalize by Provider. cp 06:43 Admitted to ER Hold. Please see [facility] for further documentation. bp 06:43 Condition: stable 06:43 Instructed on the need for admit, 12:45 Patient left the ED. ko1 Signatures: Dispatcher [employer] EDMS Cipriano Mesa PA PA cp Baxter, Heather RN RN Luan Bucio RN RN Shannan Levy RN RN ko1 Nida Hernadez RN RN jj7 Denita Mac 2
--- NOTE | 2023-08-25 02:52 | P.HP ---
Certification for Inpatient Patient admitted to: Observation With expected LOS: <2 Midnights Patient will require the following post-hospital care: None Practitioner: I am a practitioner with admitting privileges, knowledge of patient current condition, hospital course, and medical plan of care. Services: Services provided to patient in accordance with Admission requirements found in Title 42 Section 412.3 of the Code of Federal Regulations Patient History Date of Service: 08/25/23 History of Present Illness: 57-year-old male with a past medical history of hypertension, CAD, CABG times triple bypass, STEMI, kidney stones, presents to the emergency room with epigastric pain. Reports associated vomiting reports symptoms worse today. Epigastric pain is nonradiating, he denies fever, chills, diarrhea, shortness of breath, chest pain. Plan to admit for chest pain rule out ID,. ER evaluation 5 BP 162 / 64; Pulse 73; Resp 19; Temp 98.7; Pulse Ox 97% ; Weight 117.93 kg; Height 5 ft. 9 in. ; Pain 7/10; laboratory evaluation CBC unremarkable mild hypokalemia potassium 3.2 troponin normal at 8.8, lipase normal 44, CTA no sick duplicate findings. Allergies No Known Drug Allergies Allergy (Verified 04/12/18 22:58) Unknown No Known Allergies Allergy (Uncoded 01/25/17 22:05) Unknown Home Medications: Aspirin [Aspirin EC 81 MG] 81 mg PO DAILY #90 tablet. 04/13/18 Atorvastatin Calcium [Lipitor] 40 mg PO BEDTIME #30 tab 04/13/18 Metoprolol Tartrate [Lopressor*] 50 mg PO DAILY 09/04/21 Pantoprazole [Protonix Tab*] 40 mg PO DAILYAC #30 tab 09/05/21 - Past Medical/Surgical History Diabetic: No -: Hypertension -: CAD -: Kidney stones -: Chronic pain -: Cardiac Stents - December 21 2016 -: CABG 2019 three-vessel -: Cholecystectomy Psychosocial/ Personal History: Disabled, lives at home with his family - Family History Mother -: Diabetes, Cancer Notes: bone marrow cancer Father -: Heart disease, Hypertension Notes: ID - Social History Alcohol use: No CD- Drugs: No Caffeine use: Yes Review of Systems 10-point ROS is otherwise unremarkable Physical Examination - Physical Exam General: Alert, In no apparent distress, Oriented x3 HEENT: Atraumatic, Normocephalic, PERRLA Neck: Supple, 2+ carotid pulse no bruit, JVD not distended Respiratory: Clear to auscultation bilaterally, Normal air movement Cardiovascular: No edema, Normal pulses, Regular rate/rhythm Capillary refill: <2 Seconds Gastrointestinal: Normal bowel sounds, Non-distended, Tenderness (Epigastric tenderness) Musculoskeletal: No clubbing, No swelling Integumentary: No rashes, No breakdown Neurological: Normal gait, Normal speech, Normal strength at 5/5 x4 extr - Studies Laboratory Data (last 24 hrs) 08/25/23 08/24/23 08/24/23 00:03 22:10 22:10 WBC 9.10 Hgb 14.9 Hct 41.5 Plt Count 276 Sodium 137 Potassium 3.2 L BUN 16 Creatinine 0.99 Glucose 127 H Lipase Cancelled 44 Assessment and Plan - Plan Assessment plan Chest pain rule out ID-acute Nausea vomiting-acute Epigastric pain-acute Hypokalemia Essential hypertension Hyperlipidemia CAD history of STEMI DVT prophylaxis Assessment plan Chest pain rule out ID Cardiology consult, telemetry, Trend troponins, trend BNP, as needed analgesics BP 162 / 64; Pulse 73; Resp 19; Temp 98.7; Pulse Ox 97% ; Weight 117.93 kg; Height 5 ft. 9 in. ; Pain 7/10; laboratory evaluation CBC unremarkable mild troponin normal at 8.8, lipase normal 44, CTA no sick duplicate findings. EKG normal sinus rhythm rate 72 ST abnormality no STEMI Nausea vomiting Epigastric pain Hypokalemia As needed analgesics, as needed antiemetics, Gentle IV fluids hypokalemia potassium 3.2 Trend electrolytes replace as needed Essential hypertension Hyperlipidemia CAD history of STEMI Resume appropriate home meds DVT prophylaxis N.p.o. after midnight Full code Discharge Plan: Home Plan to discharge in: 24 Hours - Advance Directives Does patient have a Living Will: No Does patient have a Durable POA for Healthcare: No - Code Status/Comfort Care Code Status Assessed: No Code Status: Full Code Physician Review: Patient Assessed, Agree with Above Assessment and Plan Critical Care: No Time Spent Managing Pts Care (In Minutes): 50
[2023-08-25] MEDS ORDERED: MAGNES/ALUMIN/SIMET 30ML UCUP ONE (03:38)
[2023-08-25] MEDS ORDERED: BISACODYL E.C. 5 MG TAB PO ONE ×2 (03:38→04:08)
[2023-08-25] MEDS ORDERED: MORPHINE 4 MG/ML SYR ONE ×2 (03:38→07:26)
[2023-08-25] MEDS ORDERED: POTASSIUM CL 40 MEQ in NA CHLORIDE 0.9% 500 ML IV SCH (04:00)
[2023-08-25] MEDS ORDERED: KCL 20 MEQ/100 mL IVPB 100 ML IV SCH (04:00)
[2023-08-25] MEDS ORDERED: SODIUM CHLORIDE 0.9% 10ML INJ IV PRN (04:45)
[2023-08-25] MEDS: NA CHLORIDE 0.9% 1,000 ML IV SCH ×2 (04:45→17:50)
[2023-08-25] MEDS: PANTOPRAZOLE 40 MG INJ IVP SCH ×2 (06:00→17:48)
[2023-08-25] MEDS ORDERED: KCL 20 MEQ/100 mL IVPB 100 ML IV ONE (06:21)
[2023-08-25] MEDS ORDERED: NA CHLORIDE 0.9% 1,000 ML ONE (06:21)
[2023-08-25 06:38] VITALS: BMI 38.4
[2023-08-25] MEDS: MORPHINE 4 MG/ML SYR IV PRN ×2 (07:21→14:14)
[2023-08-25] MEDS: ONDANSETRON 4 MG/2 ML VIAL IV PRN ×2 (07:21→14:14)
[2023-08-25 07:54] LABS: Absolute Lymphocytes (CBC) 1.7 K/uL (0.7-4.9); Hematocrit 43.2 % (39.6-49.0); Lymphocytes % 17.9 % (15.3-44.8); MCV 91.6 fL (80-100); MPV 8.9 fL (7.6-11.3); Platelets 282 thou/uL (152-406); RBC Red Blood Cell Count 4.71 M/uL (4.33-5.43)
[2023-08-25 08:22] LABS: Magnesium 2.1 mg/dL (1.6-2.4); Potassium 3.7 mEq/L (3.5-5.1); Troponin High Sensitivity 9.5 pg/mL (<58.9)
--- NOTE | 2023-08-25 11:19 | EKG ---
Test Date: 2023-08-24 Test Time: 22:09:20 [employer] Ice Cream: GRAEME MEASUREMENT RESULTS: Intervals: Rate: 71 NJ: 144 QRSD: 88 QT: 396 QTc: 430 Minerva: P: 53 NJ: 144 QRS: 59 T: 48 INTERPRETIVE STATEMENTS: Normal sinus rhythm Possible Anterior infarct, age undetermined Abnormal ECG Compared to ECG 06/04/2023 19:00:18 Myocardial infarct finding now present Electronically Signed On 08-25-23 11:17:42 CDT by Esteban Liang
[2023-08-25 12:52] VITALS: O2SAT 99
[2023-08-25 16:08] VITALS: BP 117/82; TEMP 97.1
--- NOTE | 2023-08-25 17:24 | P.DS ---
Admission Date: 08/25/23 Discharge Date: 08/25/23 Disposition: ROUTINE DISCHARGE Discharge Condition: GOOD Hospital Course: Ramu Bhat is a pleasant 57-year-old male with a past medical history significant for hypertension, CAD, CABG times triple bypass, STEMI, and kidney stones who was admitted to the [facility] on 08/25/2023 for epigastric pain, nausea vomiting, and Chest pain r/o [place]. Ramu presented to the ED with complaints of epigastric pain but explained his chest was not hurting. Troponins were trended with results of 8.8/9.5. It is been found that Marcelo has gastritis and needs to follow-up with Dr. Gallardo. He has tolerated potassium replacement, Protonix IV, Zofran, and IV fluids. CT chest with no evidence of thoracic or abdominal aortic aneurysm or dissection. On 08/25/2023, Ramu was seen on morning rounds and deemed medically stable for discharge. Ramu was discharged with instructions to schedule follow-up appointments with PCP and Dr. Gallardo. Ramu was provided prescriptions for Car afate and Protonix. The patient and family members were given the opportunity to ask questions and reported no further questions. Furthermore, all questions were answered to the best of my ability. A copy of this discharge summary will be sent to the above providers to facilitate continuity of care. Today, I personally spent 55 minutes with 50, of which greater than 50% of the time was spent in patient education, counseling, and coordination of care as described above. Physical Exam General: Alert, In no apparent distress, Oriented x3 HEENT: Atraumatic, Normocephalic, PERRLA Neck: Supple, 2+ carotid pulse no bruit, JVD not distended Respiratory: Clear to auscultation bilaterally, Normal air movement Cardiovascular: No edema, Normal pulses, Regular rate/rhythm Capillary refill: <2 Seconds Gastrointestinal: Normal bowel sounds, Non-distended, Tenderness (Epigastric tenderness) Musculoskeletal: No clubbing, No swelling Integumentary: No rashes, No breakdown Neurological: Normal gait, Normal speech, Normal strength at 5/5 x4 extr Vital Signs/Physical Exam: Temp Pulse Resp BP Pulse Ox 97.1 F 76 16 117/82 99 08/25/23 16:00 08/25/23 16:00 08/25/23 16:00 08/25/23 16:00 08/25/23 16:00 Laboratory Data at Discharge: WBC 9.30 thou/uL (4.3-10.9) 08/25/23 07:24 Hgb 15.2 g/dL (13.6-17.9) 08/25/23 07:24 Hct 43.2 % (39.6-49.0) 08/25/23 07:24 Plt Count 282 thou/uL (152-406) 08/25/23 07:24 Sodium 138 mEq/L (136-145) 08/25/23 07:24 Potassium 3.7 mEq/L (3.5-5.1) D 08/25/23 07:24 BUN 9 mg/dL (7-18) 08/25/23 07:24 Creatinine 0.86 mg/dL (0.70-1.30) 08/25/23 07:24 Glucose 116 mg/dL (74-106) H 08/25/23 07:24 Magnesium 2.1 mg/dL (1.6-2.4) 08/25/23 07:24 Lipase Cancelled 08/25/23 00:03 Home Medications: Aspirin [Aspirin EC 81 MG] 81 mg PO DAILY #90 tablet. 04/13/18 Atorvastatin Calcium [Lipitor] 40 mg PO BEDTIME #30 tab 04/13/18 Metoprolol Tartrate [Lopressor*] 50 mg PO DAILY 09/04/21 Pantoprazole [Protonix Tab*] 40 mg PO DAILYAC #30 tab 09/05/21 Pantoprazole [Protonix Tab] 40 mg PO Q12H 30 Days #60 tab 08/25/23 Sucralfate [Carafate -Tab] 1 gm PO ACHS 7 Days #30 tab 08/25/23 New Medications: Sucralfate [Carafate -Tab] 1 gm PO ACHS 7 Days #30 tab Pantoprazole [Protonix Tab] 40 mg PO Q12H 30 Days #60 tab Physician Discharge Instructions: 1. Please call and schedule a follow-up appointment with your PCP in 3-5 days - Please follow-up with your PCP for medication refills/adjustments 2. Please call and schedule a follow-up appointment with Dr Gallardo in 3-5 days -for further investigations and treatment for these GI symptoms 3. Avoid carbonated drinks and spicy ingredients 4.Diet of bland foods until appointment with Dr. Gallardo for further instructions 5. No restrictions with activity, up as tolerated New medications Carafate 1 gram PO before meals and before bed Protonix 40 mg PO in the morning and before bed Activity: Ad salma Followup: NONE,NONE [Primary Care Provider] - Fabricio Gallardo MD [ACTIVE - CAN ADMIT] - Time spent managing pt's care (in minutes): 55
--- NOTE | 2023-08-25 17:53 | RAD REPORT ---
EXAM DESCRIPTION: CT Angiography Chest, Abdomen and Pelvis With Intravenous Contrast CLINICAL HISTORY: EPIGASTRIC PAIN TECHNIQUE: Axial computed tomographic angiography images of the chest, abdomen and pelvis with intra venous contrast. Sagittal and coronal reformatted images were created and reviewed. This CT exam was performed using one or more of the following dose reduction techniques: automated exposure cont rol, adjustment of the mA and/or kV according to patient size, and/or use of iterative reconstruction technique. MIP reconstructed images were created and reviewed. COMPARISON: CTA Chest Abdomen Pelvis dated 09/04/2021 FINDINGS: VASCULATURE: Aorta: No acute findings. No aortic aneurysm. No dissection. Pulmonary arteries: Unremarkable as visualized. No pulmonary embolism is identified. Great vessels of aortic arch: No acute findings. No dissection. No arterial occlusion or signif icant stenosis. Celiac trunk and mesenteric arteries: No acute findings. No occlusion or significant stenosis. Renal arteries: No acute findings. No occlusion or significant stenosis. Iliac arteries: No acute findings. No occlusion or significant stenosis. CHEST: Lungs: Stable 5 mm left lower lobe nodule. Dependent bibasilar atelectasis. Pleural space: Unremarkable. No significant effusion. No pneumothorax. Heart: Prior CABG. No cardiomegaly. No significant pericardial effusion. ABDOMEN: Liver: Unremarkable. No mass. Gallbladder and bile ducts: Prior cholecystectomy. No ductal dilation. Pancreas: Mild fatty replacement of the pancreatic parenchyma. No ductal dilation. Spleen: Unremarkable. No splenomegaly. Adrenals: Unremarkable. No mass. Kidneys and ureters: Tiny bilateral renal calculi. No hydronephrosis. No solid mass. Stomach and bowel: Colonic diverticula without adjacent inflammatory change. Moderate stool. No bowel obstruction. Intramural fat within portions of the small and large bowel which can be seen i n the setting of prior inflammation. No mucosal thickening. PELVIS: Appendix: No findings to suggest acute appendicitis. Bladder: Unremarkable. No mass. Reproductive: The prostate is unremarkable as visualized. Partially retracted right testis within the distal aspect of the right inguinal canal. CHEST, ABDOMEN and PELVIS: Intraperitoneal space: Unremarkable. No significant fluid collection. No free air. Bones/joints: Prior median sternotomy. Multilevel spondylosis. No acute fracture. Severe dege nerative changes at the right hip articulation. No dislocation. Soft tissues: Unremarkable. Lymph nodes: Top normal paraesophageal lymph node measuring 10 mm in short axis similar to the prio r. IMPRESSION: 1. No evidence for thoracic or abdominal aortic aneurysm or dissection. 2. Other findings as above. Electronically signed by: Carlene Galdamez MD 08/25/2023 2:30 AM CDT Due to temporary technical issues with the PACS/Fluency reporting system, reports are being signed by the in house radiologists without review as a courtesy to insure prompt reporting. The interpreting radiologist is fully responsible for the content of the report.
== END 2023-08-25 18:30 | disposition home or self-care (01) ==
LOC: ER 21:34 → ERHOLD 08-25 02:59 → 2ND 08-25 11:34
PROVIDERS: ADMIT Internal Medicine; ATTEND Internal Medicine
DX: K29.70 Gastritis, unspecified, without bleeding (principal); R11.2 Nausea with vomiting, unspecified; E87.6 Hypokalemia; I10 Essential (primary) hypertension; I25.10 Atherosclerotic heart disease of native coronary artery without angina pectoris; G89.29 Other chronic pain; E78.5 Hyperlipidemia, unspecified; I25.2 Old myocardial infarction; Z95.1 Presence of aortocoronary bypass graft
CPT/HCPCS: 93005; 85025 ×2; 80048 ×2; 36415; 83735; 84484 ×3; 83690; 71275; 74175; 99285; Q9967; J3480; C9113 ×3; J2405 ×5; J7030 ×2; G0378 ×3

== ENCOUNTER → 2024-01-30 | Emergency (ER) | payer OTHER ==
[~2024-01-30] MED LIST: KETOROLAC 30 MG/ML INJ ONE; MAGNESIUM SULFATE 1 gm IVPB 1 GM/100 ML BAG IV ONE; MORPHINE 4 MG/ML SYR ONE; NA CHLORIDE 0.9% 1,000 ML ONE; ONDANSETRON 4 MG/2 ML VIAL ONE; PROMETHAZINE INJ 25 MG/ML AMP ONE
--- OUTSIDE RECORDS SUMMARY | 2024-01-30 11:52 | XMS REPORT | Continuity of Care Document ---
Author Name Unknown Address [address] [place] [address] [facility] thconnect Address [address] [place] [address] Care Team Providers Care Adjunct Communications Faculty Member Name Role Phone AVRIL CULVER Attending Clinician Unavailab LORA Heart Attending Clinician Unavailable Payers Payer Name Policy Type Policy Number Effective Date Expirati on Date Source AETADONIS PEREZ DUAL COMPLETE CAP(HMO D-SNP OA) 7 [id number] 2023 00:00:00 AETNA [place] 2 [id number] 2023 00:00:00 MED[place] 6 [id number] 2023 00:00:00 Encounters Start Date/Time End Date/Time Encounter Type Admission Type Attending Clinicians Care Facility Care Department Encounter ID Source 2023-05-28 16:00:00 2023-05-28 16:00:00 Outpatient AVRIL CULVER [id number] Danielle Bowden 2023-05-13 13:40:00 2023-05-13 13:40:00 Outpatient LORA MALONEY [id number] Danielle Bowden
[2024-01-30 12:18] LABS: Absolute Basophils 0.1 K/uL (0-0.5); Absolute Eosinophils 0.4 K/uL (0-0.5); Absolute Lymphocytes (CBC) 1.8 K/uL (0.7-4.9); Absolute Monocytes 0.5 K/uL (0.1-1.3); Absolute Neutrophil 4.8 K/uL (1.8-8.0); Basophils % 1.2 % (0-1.3); Eosinophils % 4.7 % (0-4.4); Hematocrit 42.8 % (39.6-49.0); Hemoglobin 14.8 g/dL (13.6-17.9); Lymphocytes % 24.2 % (15.3-44.8); MCH 31.4 pg (27.0-35.0); MCHC 34.6 g/dL (32.0-36.0); MCV 90.8 fL (80-100); MPV 9.3 fL (7.6-11.3); Monocytes % 6.7 % (3.3-12.3); Neutrophils % 63.2 % (41.7-73.7); Platelets 272 thou/uL (152-406); RBC Red Blood Cell Count 4.72 M/uL (4.33-5.43); Red Cell Distribution Width 14.6 % (12.1-15.2)
[2024-01-30 12:36] LABS: Albumin 3.3 g/dL (3.4-5.0); Albumin/Globulin Ratio 0.9 (1.1-1.8); Anion Gap 8.8 mEq/L (5.0-15.0); Bilirubin Total 0.6 mg/dL (0.2-1.0); Globulin 3.7 g/dL (2.3-3.5); Potassium 3.8 mEq/L (3.5-5.1)
--- NOTE | 2024-01-30 12:40 | RAD REPORT ---
EXAM DESCRIPTION: CTStone Protocol - 01/30/2024 12:22 pm CLINICAL HISTORY: FLANK PAIN COMPARISON: Stone Protocol dated 01/25/2017; Abdomen Pelvis W Contrast dated 08/01/2016; CTSTONE PRO TOCOL dated 09/09/2015; CTSTONE PROTOCOL dated 09/07/2015 TECHNIQUE: CT of the abdomen and pelvis was performed. All CT scans are performed using dose optimization technique as appropriate and may include automated exposure control or mA/KV adjustment according to patient size. FINDINGS: Lower chest: Coronary artery calcifications and/or stents. Liver: No acute abnormality or suspicious lesions. Biliary: Cholecystectomy Stomach: No significant focal abnormality. Duodenum: No significant focal abnormality. Pancreas: No significant abnormality. Spleen: No significant abnormality. Adrenal: No suspicious lesions. Kidney/ureter: Mild right-sided hydronephrosis. Bilateral nephrolithiasis. 5 mm stone in the right di stal ureter. Partially duplicated right renal collecting system Retroperitoneum: No retroperitoneal adenopathy. Vascular: No aneurysm. Bowel: No significant focal abnormality. Normal appendix. Peritoneum: No ascites or free air. Fat containing left inguinal hernia. Bladder: Grossly unremarkable. Reproductive: No adnexal masses. Bones: No acute fracture. Sternotomy. Bilateral acetabular degenerative changes, right greater than l eft. Multilevel degenerative changes are present in the spine. Other: n/a IMPRESSION: Mild right-sided hydronephrosis secondary to a 5 mm stone in the right distal ureter.
[2024-01-30 15:21] LABS: Specific Gravity 1.006 (1.005-1.030); Sqamous Epithelial None Seen /HPF (None Seen); Urine Bacteria <20 /HPF (<20); Urine Bilirubin NEGATIVE (Negative); Urine Blood 1+ (Negative); Urine Clarity Clear (Clear); Urine Color Colorless (Yellow); Urine Culture Reflex Order NOT NEEDED; Urine Glucose NEGATIVE (Negative); Urine Ketones NEGATIVE (Negative); Urine Microscopic Reflex YN ORDER UMIC; Urine Mucus Slight /HPF (None Seen); Urine Nitrite NEGATIVE (Negative); Urine Protein NEGATIVE (Negative); Urine Urobilinogen Normal (Normal); Urine WBC <5 /HPF (<5); Urine Yeast (Budding) Trace /HPF (None Seen); Urine pH 6.5 (5.0-7.0)
--- NOTE | 2024-01-30 15:24 | ER ---
Nurse's Notes [facility] Name: Ramu Bhat Age: 58 yrs Sex: Male : 1965 Arrival Date: 01/30/2024 Time: 11:44 Bed 4 Private MD: Diagnosis: Hydronephrosis with ureteral calculus Presentation: 01/29 12:17 Onset of symptoms was January 30, 2024. iw 12:17 Acuity: WILLIAM 3 iw 12:17 Chief complaint: Patient states: right flank pain since this morning, hx of kidney iw stones. Coronavirus screen: At this time, the client does not indicate any symptoms associated with coronavirus-19. Ebola Screen: Patient negative for fever greater than or equal to 101.5 degrees Fahrenheit, and additional compatible Ebola Virus Disease symptoms Patient denies exposure to infectious person. Initial Sepsis Screen: Does the patient meet any 2 criteria? No. Patient's initial sepsis screen is negative. Does the patient have a suspected source of infection? No. Patient's initial sepsis screen is negative. Risk Assessment: Do you want to hurt yourself or someone else? Patient reports no desire to harm self or others. 12:17 Method Of Arrival: Wheelchair iw Historical: - Allergies: 12:16 No Known Allergies; iw - PMHx: 12:16 coronary atherosclerosis; Hypertension; Kidney stones; STEMI; iw - PSHx: 12:16 Cholecystectomy; triple bypass; iw Screenin:45 [facility] ED Fall Risk Assessment (Adult) History of falling in the last 3 months, iw including since admission No falls in past 3 months (0 pts) Confusion or Disorientation No (0 pts) Intoxicated or Sedated No (0 pts) Impaired Gait No (0 pts) Mobility Assist Device Used No (0 pt) Altered Elimination No (0 pt) Score/Fall Risk Level 0 - 2 = Low Risk. Abuse screen: Denies threats or abuse. Denies injuries from another. Nutritional screening: No deficits noted. Tuberculosis screening: No symptoms or risk factors identified. Assessment: 12:18 General: Appears uncomfortable, Behavior is cooperative. Pain: Complains of pain in iw right mid back and right low back Pain radiates to right lower quadrant. Neuro: Level of Consciousness is awake, alert, obeys commands, Oriented to person, place, time, situation. Cardiovascular: Patient's skin is warm and dry. Respiratory: Respiratory effort is even, unlabored, Respiratory pattern is regular, symmetrical. GI: Abd is soft X 4 quads. : Reports pain in right flank(s). 15:27 Reassessment: Patient appears in no apparent distress at this time. Patient and/or iw family updated on plan of care and expected duration. Pain level reassessed. Patient states feeling better. Patient states symptoms have improved. Vital Signs: 12:16 BP 156 / 71; Pulse 76; Resp 16; Pulse Ox 98% on R/A; Weight 116.12 kg; Height 5 ft. 8 iw in. ; Pain 10/10; 15:27 BP 164 / 81; Pulse 87; Resp 16; Pulse Ox 97% on R/A; iw 12:16 Body Mass Index 38.92 (116.12 kg, 172.72 cm) iw 12:16 Pain Scale: Adult iw ED Course: 11:48 Patient arrived in ED. rg4 11:50 [facility] jh7 11:50 Cipriano Pena MD is Attending Physician. 7 12:09 Vanessa Castellanos, RN is Primary Nurse. nj1 12:09 Initial lab(s) drawn, by ky, sent to lab. Inserted saline lock: 20 gauge in right nj1 antecubital area, using aseptic technique. Blood collected. 12:17 Triage completed. iw 12:17 Primary Nurse role handed off by Vanessa Castellanos, RN iw 12:17 Valeria Hicks, RN is Primary Nurse. iw 12:24 CT Stone Protocol In Process Unspecified. EDMS 12:45 Patient has correct armband on for positive identification. Provided Education on: . iw 15:22 Peter Min MD is Referral Physician. [facility] 15:27 No provider procedures requiring assistance completed. iw Administered Medications: 12:17 Drug: Ondansetron IVP 4 mg IVP once; over 2 minutes Route: IVP; Site: right antecubital;iw 12:18 Drug: morphine IVP or IV 4 mg IVP once over 4 mins Route: IVP; Infused Over: 4 mins; iw Site: right antecubital; 12:51 Drug: NS 0.9% IV 1000 ml IV at 1 bolus Per protocol; 1000 mL bolus Route: IV; Rate: 1 iw bolus; Site: right antecubital; 13:51 Follow up: IV Status: Completed infusion iw 13:30 Drug: Promethazine IVP 12.5 mg IVP once Route: IVP; Site: right antecubital; iw 14:00 Follow up: Response: No adverse reaction iw 13:30 Drug: Ketorolac IVP 30 mg IVP once Route: IVP; Site: right antecubital; iw 13:31 Drug: NS 0.9% IV 1000 ml IV at 1 bolus Per protocol; 1000 mL bolus Route: IV; Rate: 1 iw bolus; Site: right antecubital; 14:30 Follow up: IV Status: Completed infusion iw 13:31 Drug: Magnesium Sulfate IVPB 1 grams IVPB once over 1 hrs Route: IVPB; Infused Over: 1 iw hrs; Site: right antecubital; 14:30 Follow up: IV Status: Completed infusion iw 15:24 Drug: morphine IVP or IV 4 mg IVP once over 4 mins Route: IVP; Infused Over: 4 mins; iw Site: right antecubital; Outcome: 15:24 Discharge ordered by MD. de 16:05 Patient left the ED. iw Signatures: Dispatcher [employer] EDMS Valeria Hicks, RN ANGELICA iw Ramila Galdamez rg4 Sara Aguayo FNP [employer] 7 Vanessa Castellanos RN RN nj1 Corrections: (The following items were deleted from the chart) 12:16 12:16 BP 156 / 71; Pulse 76bpm; Resp 16bpm; Pulse Ox 98% RA; iw iw
--- NOTE | 2024-01-30 15:24 | EDPHYS ---
Physician Documentation [facility] Name: Ramu Bhat Age: 58 yrs Sex: Male : 1965 Arrival Date: 01/30/2024 Time: 11:44 Bed 4 Private MD: ED Physician Cipriano Pena HPI: 01/29 12:17 This 58 yrs old Male presents to ER via Wheelchair with complaints of Possible Kidney jh7 Stone. 12:17 Onset: The symptoms/episode began/occurred this morning. Associated signs and symptoms: jh7 Pertinent positives: vomiting, Pertinent negatives: abdominal pain, chest pain, fever, shortness of breath. 58-year-old male with a past medical history of 8+ renal stones, hypertension, and open heart surgery presents to the ER complaining of right flank pain. The patient states that this is similar to his other renal stones and reports that he does not see a urologist. He states that we normally give him morphine and fluids to help him pass the stone and that he has no problem passing it on his own at home. Currently vomiting in triage.. Historical: - Allergies: 12:16 No Known Allergies; iw - PMHx: 12:16 coronary atherosclerosis; Hypertension; Kidney stones; STEMI; iw - PSHx: 12:16 Cholecystectomy; triple bypass; iw ROS: 12:17 Constitutional: Negative for fever, chills, and weight loss, Eyes: Negative for injury, jh7 pain, redness, and discharge, Neck: Negative for injury, pain, and swelling, Cardiovascular: Negative for chest pain, palpitations, and edema, Respiratory: Negative for shortness of breath, cough, wheezing, and pleuritic chest pain, MS/Extremity: Negative for injury and deformity, Skin: Negative for injury, rash, and discoloration, Neuro: Negative for headache, weakness, numbness, tingling, and seizure, 12:17 Abdomen/GI: Positive for nausea and vomiting, Negative for abdominal pain, 12:17 Back: Positive for flank pain, on the right, 12:17 : Positive for flank pain, Negative for urinary symptoms, 12:17 All other systems are negative, Exam: 12:17 Head/Face: Normocephalic, atraumatic. Eyes: Pupils equal round and reactive to light, jh7 extra-ocular motions intact. Lids and lashes normal. Conjunctiva and sclera are non-icteric and not injected. Cornea within normal limits. Periorbital areas with no swelling, redness, or edema. Neck: Trachea midline, no thyromegaly or masses palpated, and no cervical lymphadenopathy. Supple, full range of motion without nuchal rigidity, or vertebral point tenderness. No Meningismus. Cardiovascular: Regular rate and rhythm with a normal S1 and S2. No gallops, murmurs, or rubs. Normal PMI, no JVD. No pulse deficits. Respiratory: Lungs have equal breath sounds bilaterally, clear to auscultation and percussion. No rales, rhonchi or wheezes noted. No increased work of breathing, no retractions or nasal flaring. Abdomen/GI: Soft, non-tender, with normal bowel sounds. No distension or tympany. No guarding or rebound. No evidence of tenderness throughout. Skin: Warm, dry with normal turgor. Normal color with no rashes, no lesions, and no evidence of cellulitis. MS/ Extremity: Pulses equal, no cyanosis. Neurovascular intact. Full, normal range of motion. Neuro: Awake and alert, GCS 15, oriented to person, place, time, and situation. Motor strength 5/5 in all extremities. Sensory grossly intact. Normal gait. 12:17 Constitutional: The patient appears alert, awake, in obvious pain, 12:17 : CVA tenderness, on the right, Vital Signs: 12:16 BP 156 / 71; Pulse 76; Resp 16; Pulse Ox 98% on R/A; Weight 116.12 kg; Height 5 ft. 8 iw in. ; Pain 10/10; 15:27 BP 164 / 81; Pulse 87; Resp 16; Pulse Ox 97% on R/A; iw 12:16 Body Mass Index 38.92 (116.12 kg, 172.72 cm) iw 12:16 Pain Scale: Adult iw MDM: 11:50 Patient medically screened. [facility] 15:28 Differential diagnosis: UTI, nephrolithiasis, hydronephrosis, pyelonephritis. Data [facility] reviewed: vital signs, nurses notes, lab test result(s), radiologic studies, CT scan. I considered the following discharge prescriptions or medication management in the emergency department Medications were administered in the Emergency Department. See MAR. Care significantly affected by the following chronic conditions: Hypertension. Counseling: I had a detailed discussion with the patient and/or guardian regarding the historical points, exam findings, and any diagnostic results supporting the discharge/admit diagnosis, the need for outpatient follow up, a urologist, to return to the emergency department if symptoms worsen or persist or if there are any questions or concerns that arise at home. Response to treatment: the patient's symptoms have markedly improved after treatment. 01/29 11:55 Order name: CBC with Diff; Complete Time: 12:42 [facility] 01/29 11:55 Order name: CMP; Complete Time: 12:42 [facility] 01/29 11:55 Order name: Lipase; Complete Time: 12:42 [facility] 01/29 11:55 Order name: Urinalysis w/ reflexes; Complete Time: 15:22 [facility] 01/29 11:55 Order name: CT Stone Protocol; Complete Time: 12:42 [facility] 01/29 11:55 Order name: IV Saline Lock; Complete Time: 12:17 [facility] 01/29 11:55 Order name: Labs collected and sent; Complete Time: 12:17 [facility] Administered Medications: 12:17 Drug: Ondansetron IVP 4 mg IVP once; over 2 minutes Route: IVP; Site: right antecubital;iw 12:18 Drug: morphine IVP or IV 4 mg IVP once over 4 mins Route: IVP; Infused Over: 4 mins; iw Site: right antecubital; 12:51 Drug: NS 0.9% IV 1000 ml IV at 1 bolus Per protocol; 1000 mL bolus Route: IV; Rate: 1 iw bolus; Site: right antecubital; 13:51 Follow up: IV Status: Completed infusion iw 13:30 Drug: Promethazine IVP 12.5 mg IVP once Route: IVP; Site: right antecubital; iw 14:00 Follow up: Response: No adverse reaction iw 13:30 Drug: Ketorolac IVP 30 mg IVP once Route: IVP; Site: right antecubital; iw 13:31 Drug: NS 0.9% IV 1000 ml IV at 1 bolus Per protocol; 1000 mL bolus Route: IV; Rate: 1 iw bolus; Site: right antecubital; 14:30 Follow up: IV Status: Completed infusion iw 13:31 Drug: Magnesium Sulfate IVPB 1 grams IVPB once over 1 hrs Route: IVPB; Infused Over: 1 iw hrs; Site: right antecubital; 14:30 Follow up: IV Status: Completed infusion iw 15:24 Drug: morphine IVP or IV 4 mg IVP once over 4 mins Route: IVP; Infused Over: 4 mins; iw Site: right antecubital; Disposition Summary: 01/30/24 15:24 Discharge Ordered Notes: Location: Home [facility] Problem: an ongoing problem [facility] Symptoms: have improved [facility] Condition: Stable [facility] Diagnosis - Hydronephrosis with ureteral calculus [facility] Followup: [facility] - With: Peter Min MD - When: 2 - 3 days - Reason: Recheck today's complaints Discharge Instructions: - Discharge Summary Sheet [facility] - Kidney Stones [facility] - Dietary Guidelines to Help Prevent Kidney Stones [facility] Forms: - Medication Reconciliation Form [facility] - Thank You Letter [facility] - Antibiotic Education [facility] - Prescription Opioid Use [facility] - Patient Portal Instructions [facility] - Leadership Thank You Letter [facility] Prescriptions: - Flomax 0.4 mg Oral capsule - take 1 capsule ORAL route every 24 hours; 7 capsule; Refills: 0, Product [facility] Selection Permitted - acetaminophen-codeine 300-15 mg Oral tablet - take 1 tablet ORAL route every 4 hours As needed as needed for pain; 20 tablet; [facility] Refills: 0, Product Selection Permitted - ketorolac 10 mg Oral tablet - take 1 tablet ORAL route every 4 to 6 hours for 3 days as needed for pain; do [facility] not exceed 4 doses per 24 hrs; 12 tablet; Refills: 0, Product Selection Permitted - Cipro 500 mg Oral Tablet - take 1 tablet ORAL route every 12 hours for 10 days; 20 tablet; Refills: 0, [facility] Product Selection Permitted Signatures: Dispatcher [employer] Valeria Hand, RN RN iw Sara Aguayo, CUBE CUTTER CUBE CUTTER [facility]
[2024-01-30 16:15] VITALS: BP 164/81; O2SAT 97
== END ==
LOC: ER 11:44
DX: N13.2 Hydronephrosis with renal and ureteral calculous obstruction (principal); Z87.442 Personal history of urinary calculi; Z95.1 Presence of aortocoronary bypass graft
CPT/HCPCS: 96365; 96361; 85025; 81001; 36415; 83690; 80053; 76377; 74176; 96375; 99284; J2550; J3475; J2405 ×2; J7030 ×2

== ENCOUNTER 2024-04-07 13:21 | Emergency (ER) | payer OTHER ==
--- OUTSIDE RECORDS SUMMARY | 2024-04-07 13:23 | XMS REPORT | Continuity of Care Document ---
Author Name Unknown Address [address] [place] [address] [address] [place], [place] [id number] [place] [address] [employer]connect Address [address] [place] [address] [address] [place] [address] Care Team Providers Care Bpo Specialist Name Role Phone AVRIL CULVER Attending Clinician Unavailab LORA Heart Attending Clinician Unavailable Payers Payer Name Policy Type Policy Number Effective Date Expirati on Date Source AELE PEREZ DUAL COMPLETE CAP(HMO D-SNP OA) 7 [id number] 2023 00:00:00 [employer] [place] DUAL 2 [id number] 2023 00:00:00 MEDICAID-[place] 6 [id number] 2023 00:00:00 Encounters Start Date/Time End Date/Time Encounter Type Admission Type Attending Clinicians [facility] Facility Care Department Encounter ID Source 2023-05-28 16:00:00 2023-05-28 16:00:00 Outpatient AVRIL CULVER [id number] Danielle Bowden 2023-05-13 13:40:00 2023-05-13 13:40:00 Outpatient LORA MALONEY [id number] Danielle Bowden
[2024-04-07] MEDS ORDERED: MORPHINE 4 MG/ML SYR ONE (14:01)
[2024-04-07] MEDS ORDERED: ONDANSETRON 4 MG/2 ML VIAL ONE (14:01)
[2024-04-07] MEDS ORDERED: NA CHLORIDE 0.9% 1,000 ML ONE ×2 (14:01→17:33)
[2024-04-07 14:27] LABS: Absolute Lymphocytes (CBC) 1.1 K/uL (0.7-4.9); Absolute Monocytes 0.4 K/uL (0.1-1.3); Absolute Neutrophil 8.1 K/uL (1.8-8.0); Basophils % 0.4 % (0-1.3); Eosinophils % 0.5 % (0-4.4); Hematocrit 45.7 % (39.6-49.0); Hemoglobin 15.9 g/dL (13.6-17.9); Lymphocytes % 11.2 % (15.3-44.8); MCH 31.5 pg (27.0-35.0); MCHC 34.8 g/dL (32.0-36.0); MCV 90.6 fL (80-100); Monocytes % 3.8 % (3.3-12.3); Neutrophils % 84.1 % (41.7-73.7); Platelets 285 thou/uL (152-406); RBC Red Blood Cell Count 5.04 M/uL (4.33-5.43); Red Cell Distribution Width 14.2 % (12.1-15.2)
[2024-04-07 14:46] LABS: Albumin 3.3 g/dL (3.4-5.0); Albumin/Globulin Ratio 0.9 (1.1-1.8); Anion Gap 7.4 mEq/L (5.0-15.0); Bilirubin Total 0.7 mg/dL (0.2-1.0); Globulin 3.7 g/dL (2.3-3.5); Potassium 3.4 mEq/L (3.5-5.1)
[2024-04-07] MEDS ORDERED: PROMETHAZINE INJ 25 MG/ML AMP ONE (15:31)
[2024-04-07] MEDS ORDERED: KETOROLAC 30 MG/ML INJ ONE (15:31)
--- NOTE | 2024-04-07 15:32 | RAD REPORT ---
EXAM DESCRIPTION: CTAbdomen Pelvis W Contrast - 04/07/2024 3:02 pm CLINICAL HISTORY: Abdominal pain. ABD PAIN COMPARISON: <Comparisons> TECHNIQUE: Biphasic CT imaging of the abdomen and pelvis was performed with 100 ml non-ionic IV cont rast. All CT scans are performed using dose optimization technique as appropriate and may include automated exposure control or mA/KV adjustment according to patient size. FINDINGS: The lung bases are clear.Cholecystectomy. Small hiatal hernia. The liver, spleen, pancreas, adrenal glands and right kidney are within normal limits. 9 mm stone is seen in the left renal pelvis. No bowel obstruction, free air, free fluid or abscess. The appendix is normal. No evidence of signi ficant lymphadenopathy. Advanced degenerative change right hip. Mild lumbar degenerative changes. IMPRESSION: 9 mm stone left renal pelvis without hydronephrosis.
[2024-04-07 16:55] LABS: Specific Gravity > 1.030 (1.005-1.030); Sqamous Epithelial <5 /HPF (None Seen); Urine Bacteria <20 /HPF (<20); Urine Bilirubin NEGATIVE (Negative); Urine Blood 3+ (Negative); Urine Clarity Clear (Clear); Urine Color Light-Yellow (Yellow); Urine Crystals Unidentified Few /HPF (None Seen); Urine Culture Reflex Order REFLEXED; Urine Glucose NEGATIVE (Negative); Urine Ketones NEGATIVE (Negative); Urine Microscopic Reflex YN ORDER UMIC; Urine Mucus Slight /HPF (None Seen); Urine Nitrite NEGATIVE (Negative); Urine Protein NEGATIVE (Negative); Urine RBC >50 /HPF (None Seen); Urine Urobilinogen Normal (Normal); Urine WBC 20-50 /HPF (<5); Urine Yeast (Budding) Trace /HPF (None Seen)
[2024-04-07] MEDS ORDERED: CEFTRIAXONE 1000 MG/VIAL ONE (17:05)
[2024-04-07] MEDS ORDERED: NA CHLORIDE 0.9% 50 ML ONE (17:05)
[2024-04-07] MEDS ORDERED: FAMOTIDINE 20 MG/2 ML VIAL IV ONE (17:32)
--- NOTE | 2024-04-07 18:20 | EDPHYS ---
Physician Documentation [facility] Name: Ramu Bhat Age: 58 yrs Sex: Male : 1965 Arrival Date: 04/07/2024 Time: 13:21 Bed 19 Private MD: ED Physician Kelli De Jesus HPI: 04/07 14:00 This 58 yrs old Male presents to ER via Wheelchair with complaints of Vomiting, sb4 Possible Kidney Stone. 14:00 patient states he started experiencing left sided abdominal pain flank pain suddenly at sb4 3am, feeling similar to when he has previously had kidney stones. he believes he passed the stone recently. he also reports fever, nausea, vomiting, and intermittent chest pain. patient not very cooperative during my examination, demanding blankets and morphine. Historical: - Allergies: 13:30 No Known Allergies; db - PMHx: 13:30 coronary atherosclerosis; Hypertension; Kidney stones; STEMI; db - PSHx: 13:30 Cholecystectomy; triple bypass; db - Immunization history:: Adult Immunizations unknown. - Infectious Disease History:: Denies. - Social history:: Smoking status: Patient denies any tobacco usage or history of. ROS: 14:00 Constitutional: Positive for fever, sb4 14:00 Abdomen/GI: Positive for nausea and vomiting, 14:00 Back: Positive for flank pain, 14:00 All other systems are negative, 14:00 Respiratory: Negative for shortness of breath, cough, wheezing, and pleuritic chest sb4 pain, 14:00 Cardiovascular: Positive for chest pain, Exam: 14:00 Head/Face: Normocephalic, atraumatic. Eyes: Extra-ocular motions intact. Periorbital sb4 areas with no swelling, redness, or edema. ENT: Mucous membranes moist. Cardiovascular: Regular rate and rhythm with a normal S1 and S2. Respiratory: Lungs have equal breath sounds bilaterally, clear to auscultation and percussion. No rales, rhonchi or wheezes noted. No increased work of breathing, no retractions or nasal flaring. Abdomen/GI: Soft, non-tender, no distension. Skin: Warm, dry with normal turgor. Normal color with no rashes, no lesions, and no evidence of cellulitis. MS/ Extremity: Pulses equal, no cyanosis. Neurovascular intact. Full, normal range of motion. 14:00 Constitutional: The patient appears alert, awake, obese, in obvious pain, restless, uncomfortable, 14:00 Back: CVA tenderness, that is moderate, is noted on the left, Vital Signs: 13:28 BP 139 / 110; Pulse 70; Resp 18; Temp 97.8; Pulse Ox 98% ; Weight 117.93 kg; Height 5 db ft. 10 in. ; 14:05 BP 173 / 75; Pulse 67; Resp 20; Pulse Ox 94% ; Pain 10/10; nj1 15:10 BP 186 / 89; Pulse 82; Resp 18; Pulse Ox 97% ; nj1 16:20 BP 180 / 104; Pulse 65; Resp 19; Pulse Ox 99% ; nj1 17:05 BP 198 / 83; Pulse 63; Resp 19; Pulse Ox 96% ; nj1 17:49 BP 160 / 87; Pulse 72; Resp 19; Pulse Ox 93% on R/A; nj1 18:50 BP 177 / 85; Pulse 62; Resp 19; Pulse Ox 95% on R/A; nj1 13:28 Body Mass Index 37.31 (117.93 kg, 177.8 cm) db 14:05 Pain Scale: Adult nj1 MDM: 13:33 Patient medically screened. sb4 15:20 Data reviewed: vital signs, nurses notes, lab test result(s), EKG, radiologic studies. sb4 18:15 Counseling: I had a detailed discussion with the patient and/or guardian regarding the sb4 historical points, exam findings, and any diagnostic results supporting the discharge/admit diagnosis, lab results, radiology results, the need for outpatient follow up, a urologist, to return to the emergency department if symptoms worsen or persist or if there are any questions or concerns that arise at home. 04/07 13:35 Order name: CBC with Diff; Complete Time: 14:29 sb4 04/07 13:35 Order name: CMP; Complete Time: 14:46 sb4 04/07 13:35 Order name: Urinalysis w/ reflexes; Complete Time: 16:56 sb4 04/07 13:35 Order name: Troponin HS; Complete Time: 14:46 sb4 04/07 16:58 Order name: Urine Culture EDID 04/07 17:19 Order name: Troponin High Sensitivity; Complete Time: 18:19 sb4 04/07 13:35 Order name: CT Abd/Pelvis - IV Contrast Only; Complete Time: 15:32 sb4 04/07 13:42 Order name: EKG; Complete Time: 13:42 sb4 04/07 13:35 Order name: IV Saline Lock; Complete Time: 14:13 sb4 04/07 13:35 Order name: Labs collected and sent; Complete Time: 14:13 sb4 04/07 16:16 Order name: EKG - Nurse/Tech; Complete Time: 16:28 nj EC:27 Rate is 64 beats/min. Rhythm is regular, Normal Sinus Rhythm. MD interval is normal at sb4 122 msec. QRS interval is normal at 94 msec. QT interval is normal at 404 msec. No Q waves. T waves are Normal. No ST changes noted. Clinical impression: Normal ECG. Interpreted by me. Reviewed by me. Administered Medications: 14:05 Drug: NS 0.9% IV 1000 ml IV at 1 bolus Per protocol; 1000 mL bolus Route: IV; Rate: 1 nj1 bolus; Site: right upper arm; 14:06 Drug: Ondansetron IVP 4 mg IVP once; over 2 minutes Route: IVP; Site: right upper arm; nj1 14:30 Follow up: Response: No adverse reaction nj1 14:08 Drug: morphine IVP or IV 4 mg IVP once over 4 mins Route: IVP; Infused Over: 4 mins; nj1 Site: right upper arm; 14:30 Follow up: Response: No adverse reaction; Pain is decreased nj1 15:35 Drug: Ketorolac IVP 30 mg IVP once Route: IVP; Site: right upper arm; nj1 17:30 Follow up: Response: No adverse reaction; Pain is decreased nj1 15:36 Drug: Promethazine IVP 12.5 mg IVP once Route: IVP; Site: right upper arm; nj1 17:30 Follow up: Response: No adverse reaction nj1 17:08 Drug: Rocephin IV 1 grams IV at calculated rate once; Given slow IV push per pharmacy nj1 instructions Route: IV; Rate: calculated rate; Site: right upper arm; 17:30 Follow up: Response: No adverse reaction; IV Status: Completed infusion; IV Intake: [id number] 17:38 Drug: NS 0.9% IV 1000 ml IV at 1 bolus Per protocol; 1000 mL bolus Route: IV; Rate: 1 nj1 bolus; Site: right upper arm; 19:00 Follow up: IV Status: Completed infusion; IV Intake: 1000ml nj1 17:39 Drug: Famotidine IVP 20 mg IVP once; dilute with 10 mL 0.9% NaCl; give over 2 minutes nj1 Route: IVP; Site: right upper arm; 18:00 Follow up: Response: No adverse reaction nj1 Disposition Summary: 04/07/24 18:19 Discharge Ordered Notes: Location: Home sb4 Problem: new sb4 Symptoms: have improved sb4 Condition: Stable sb4 Diagnosis - Calculus of kidney sb4 Followup: sb4 - With: Peter Min MD - When: 2 - 3 days - Reason: Recheck today's complaints, Re-evaluation by your physician Discharge Instructions: - Discharge Summary Sheet sb4 - Kidney Stones sb4 Forms: - Prescription Opioid Use sb4 - Patient Portal Instructions sb4 - Leadership Thank You Letter sb4 Prescriptions: - acetaminophen-codeine 300-30 mg Oral tablet - take 1 tablet ORAL route every 4 to 6 hours as needed for pain; 12 tablet; sb4 Refills: 0, Product Selection Permitted - tamsulosin 0.4 mg Oral capsule - take 1 capsule ORAL route every day at bedtime; 20 capsule; Refills: 0, Product sb4 Selection Permitted - ondansetron 8 mg Oral Tablet,disintegrating - take 1 tablet ORAL route every 8 hours; 20 tablet; Refills: 0, Product sb4 Selection Permitted Signatures: Dispatcher [employer] Radha Rees, RN Emma Verdugo PA-C PA-C sb4 Vanessa Castellanos RN RN nj1
--- NOTE | 2024-04-07 18:20 | ER ---
Nurse's Notes [facility] Name: Ramu Bhat Age: 58 yrs Sex: Male : 1965 Arrival Date: 04/07/2024 Time: 13:21 Bed 19 Private MD: Diagnosis: Calculus of kidney Presentation: 04/07 13:28 Chief complaint: Patient states: STATES FEELS LIKE HAS A KIDNEY STONE THAT IS PASSING. db STARTED VOMITING TODAY AND ON THE WAY UP HERE STARTED HAVING CHEST PAIN. Coronavirus screen: Client denies travel out of the [place] in the last 14 days. At this time, the client does not indicate any symptoms associated with coronavirus-19. Ebola Screen: Patient negative for fever greater than or equal to 101.5 degrees Fahrenheit, and additional compatible Ebola Virus Disease symptoms Patient denies exposure to infectious person. Patient denies travel to an Ebola-affected area in the 21 days before illness onset. No symptoms or risks identified at this time. Initial Sepsis Screen: Does the patient meet any 2 criteria? No. Patient's initial sepsis screen is negative. Does the patient have a suspected source of infection? No. Patient's initial sepsis screen is negative. Risk Assessment: Do you want to hurt yourself or someone else? Patient reports no desire to harm self or others. Onset of symptoms was April 07, 2024. 13:28 Method Of Arrival: Wheelchair db 13:28 Acuity: WILLIAM 2 db Triage Assessment: 13:30 General: Appears in no apparent distress. uncomfortable, Behavior is cooperative. Pain: db Complains of pain in chest and abdomen. Neuro: Level of Consciousness is awake, alert, obeys commands, Oriented to person, place, time, situation. Respiratory: Airway is patent Respiratory effort is even, unlabored, Respiratory pattern is regular, symmetrical. GI: Abdomen is distended, Reports nausea, vomiting. : Reports burning with urination. Historical: - Allergies: 13:30 No Known Allergies; db - PMHx: 13:30 coronary atherosclerosis; Hypertension; Kidney stones; STEMI; db - PSHx: 13:30 Cholecystectomy; triple bypass; db - Immunization history:: Adult Immunizations unknown. - Infectious Disease History:: Denies. - Social history:: Smoking status: Patient denies any tobacco usage or history of. Screenin:16 [facility] ED Fall Risk Assessment (Adult) History of falling in the last 3 months, nj1 including since admission No falls in past 3 months (0 pts) Confusion or Disorientation No (0 pts) Intoxicated or Sedated No (0 pts) Impaired Gait No (0 pts) Mobility Assist Device Used No (0 pt) Altered Elimination No (0 pt) Score/Fall Risk Level 0 - 2 = Low Risk Oriented to surroundings, Maintained a safe environment, Hourly rounding (assess needs \T\ fall precautionary measures) done. Abuse screen: Denies threats or abuse. Denies injuries from another. Nutritional screening: No deficits noted. Tuberculosis screening: No symptoms or risk factors identified. Assessment: 14:00 General: Appears in no apparent distress. uncomfortable, Behavior is calm, cooperative, nj1 appropriate for age. Pain: Complains of pain in abdomen Pain currently is 10 out of 10 on a pain scale. 14:00 Neuro: Level of Consciousness is awake, alert, obeys commands, Oriented to person, nj1 place, time, situation. Cardiovascular: Patient's skin is warm and dry. Respiratory: Airway is patent Respiratory effort is even, unlabored. GI: Reports lower abdominal pain, upper abdominal pain, nausea, vomiting. 14:30 Reassessment: Patient appears in no apparent distress at this time. Pt resting/sleeping.nj1 16:00 Reassessment: Patient appears in no apparent distress at this time. Patient and/or nj1 family updated on plan of care and expected duration. Pain level reassessed. Patient is alert, oriented x 3, equal unlabored respirations, skin warm/dry/pink. 17:14 Reassessment: Patient appears in no apparent distress at this time. Patient and/or nj1 family updated on plan of care and expected duration. Pain level reassessed. Patient is alert, oriented x 3, equal unlabored respirations, skin warm/dry/pink. 18:51 Reassessment: Patient appears in no apparent distress at this time. Patient is alert, nj1 oriented x 3, equal unlabored respirations, skin warm/dry/pink. Vital Signs: 13:28 BP 139 / 110; Pulse 70; Resp 18; Temp 97.8; Pulse Ox 98% ; Weight 117.93 kg; Height 5 db ft. 10 in. ; 14:05 BP 173 / 75; Pulse 67; Resp 20; Pulse Ox 94% ; Pain 10/10; nj1 15:10 BP 186 / 89; Pulse 82; Resp 18; Pulse Ox 97% ; nj1 16:20 BP 180 / 104; Pulse 65; Resp 19; Pulse Ox 99% ; nj1 17:05 BP 198 / 83; Pulse 63; Resp 19; Pulse Ox 96% ; nj1 17:49 BP 160 / 87; Pulse 72; Resp 19; Pulse Ox 93% on R/A; nj1 18:50 BP 177 / 85; Pulse 62; Resp 19; Pulse Ox 95% on R/A; nj1 13:28 Body Mass Index 37.31 (117.93 kg, 177.8 cm) db 14:05 Pain Scale: Adult nj1 ED Course: 13:22 Patient arrived in ED. im 13:23 Emma Szymanski PA-C is PHCP. sb4 13:23 Kelli De eJsus MD is Attending Physician. sb4 13:28 Radha Bishop, RN is Primary Nurse. db 13:30 Triage completed. db 13:31 Arm band placed on. db 14:05 Inserted saline lock: 20 gauge in right upper arm, using aseptic technique. Blood nj1 collected. 14:16 Patient has correct armband on for positive identification. Bed in low position. Call nj1 light in reach. Side rails up X 1. Provided Education on: call light, fall precautions. 15:04 CT Abd/Pelvis - IV Contrast Only In Process Unspecified. EDMS 16:28 EKG done, by ED staff, reviewed by Emma Szymanski PA-C. nj1 17:47 Troponin High Sensitivity Sent. nj1 18:19 Peter Min MD is Referral Physician. sb4 19:00 No provider procedures requiring assistance completed. nj1 19:00 IV discontinued, intact, bleeding controlled, Pressure dressing applied. nj1 Administered Medications: 14:05 Drug: NS 0.9% IV 1000 ml IV at 1 bolus Per protocol; 1000 mL bolus Route: IV; Rate: 1 nj1 bolus; Site: right upper arm; 14:06 Drug: Ondansetron IVP 4 mg IVP once; over 2 minutes Route: IVP; Site: right upper arm; nj1 14:30 Follow up: Response: No adverse reaction nj1 14:08 Drug: morphine IVP or IV 4 mg IVP once over 4 mins Route: IVP; Infused Over: 4 mins; nj1 Site: right upper arm; 14:30 Follow up: Response: No adverse reaction; Pain is decreased nj1 15:35 Drug: Ketorolac IVP 30 mg IVP once Route: IVP; Site: right upper arm; nj1 17:30 Follow up: Response: No adverse reaction; Pain is decreased nj1 15:36 Drug: Promethazine IVP 12.5 mg IVP once Route: IVP; Site: right upper arm; nj1 17:30 Follow up: Response: No adverse reaction nj1 17:08 Drug: Rocephin IV 1 grams IV at calculated rate once; Given slow IV push per pharmacy nj1 instructions Route: IV; Rate: calculated rate; Site: right upper arm; 17:30 Follow up: Response: No adverse reaction; IV Status: Completed infusion; IV Intake: [id number] 17:38 Drug: NS 0.9% IV 1000 ml IV at 1 bolus Per protocol; 1000 mL bolus Route: IV; Rate: 1 nj1 bolus; Site: right upper arm; 19:00 Follow up: IV Status: Completed infusion; IV Intake: 1000ml nj1 17:39 Drug: Famotidine IVP 20 mg IVP once; dilute with 10 mL 0.9% NaCl; give over 2 minutes nj1 Route: IVP; Site: right upper arm; 18:00 Follow up: Response: No adverse reaction nj1 Medication: 19:00 VIS not applicable for this client. nj1 Intake: 17:30 IV: 50ml; Total: 50ml. nj1 19:00 IV: 1000ml; Total: 1050ml. nj1 Outcome: 18:19 Discharge ordered by . aleksandar 19:00 Discharged to home ambulatory, nj1 19:00 Condition: stable nj1 19:00 Discharge instructions given to patient, Instructed on discharge instructions, follow up and referral plans. medication usage, Demonstrated understanding of instructions, follow-up care, medications, Prescriptions given X 3, 19:06 Patient left the ED. nj1 Signatures: Dispatcher [employer] Radha Rees RN RN Emma Brown, PA-C PALaurenC [email or web address] Vanessa Castellanos RN RN nj1 Chelsi Phillips
[2024-04-07 19:21] VITALS: TEMP 97.8
[2024-04-07 19:39] VITALS: BP 177/85; O2SAT 95
--- NOTE | 2024-04-08 16:50 | EKG ---
Test Date: 2024-04-07 Test Time: 16:22:14 Entry Level Sales Consultant: MAYA MEASUREMENT RESULTS: Intervals: Rate: 64 WV: 122 QRSD: 94 QT: 404 QTc: 416 [place]: P: 61 WV: 122 QRS: 45 T: 42 INTERPRETIVE STATEMENTS: Normal sinus rhythm Normal ECG Compared to ECG 08/24/2023 22:09:20 Myocardial infarct finding no longer present Electronically Signed On 04-08-24 16:47:47 CDT by Esteban Liang
== END 2024-04-07 19:06 | disposition home or self-care (01) ==
LOC: ER 13:21
DX: N20.0 Calculus of kidney (principal); Z87.442 Personal history of urinary calculi; R11.2 Nausea with vomiting, unspecified; Z95.1 Presence of aortocoronary bypass graft
CPT/HCPCS: 96365; 96361; 93005; 87088; 85025; 81001; 87086; 36415; 87077; 87186; 84484 ×2; 80053; 74177; 96375; 99284; Q9967; J2550; J2405; J7030 ×2; J0696